=== PATIENT | female | born 1995 | race African-American/Black ===

== ENCOUNTER 2019-12-30 09:00 | Emergency (ER) | payer OTHER, SELFPAY ==
[2019-12-30 09:11] VITALS: BP 148/95; PULSE 96; RESP 18; TEMP 37.7; O2SAT 99
--- NOTE | 2019-12-30 10:00 | ED.GENADULT ---
HPI - General Adult General Chief complaint: Unspecified Stated complaint: vomiting Time Seen by Provider: 12/30/19 09:53 Source: patient Mode of arrival: ambulatory Limitations: no limitations History of Present Illness HPI narrative: Pt is a 24 y/o female who presents to the ED with c/o N/V for 2 days. Pt reports associated cough with phlegm production, JI, myalgia, fever of 100.8F, and sore throat x4 days. She also states that she had diarrhea 2 days ago. Pt states that when she went to work 2 of her coworkers were sick with the same Sx. Pt did not get a flu shot. She is not able to keep anything down. Pt had induced HTN and was on HTN medication but she has not been on HTN medication since. The last time she saw her OBGYN was 2 months ago and she is supposed to see a PCP about it. complaint: N/V Onset (ago): day(s) (2) Relieving factors: none Exacerbating factors: eating Associated symptoms: cough, fever/chills, headaches and other (myalgia, sore throat, diarrhea) Treatments prior to arrival: none Related Data Allergies Allergy/AdvReac Type Severity Reaction Status Date / Time No Known Allergies Allergy Verified 12/14/19 10:53 Review of Systems Review of Systems: All systems reviewed & are unremarkable except as noted in HPI and below Constitutional: Constitutional: Reports body ache(s) and Reports fever(s) (100.8F) ENT: Reports sore throat Respiratory: Respiratory: Reports cough Gastrointestinal: Gastrointestinal: Reports diarrhea, Reports nausea and Reports vomiting Neurologic: Reports headache(s) PMFSH Past Medical History Medical History Asthma Depression Elective Encounter for counseling regarding contraception induced hypertension Surgical History Surgical History (Updated 12/30/19 @ 10:09 by Justin Capone) No significant past surgical history Social History Social History Smoking status: Light tobacco smoker Second hand tobacco smoke exposure: No Alcohol intake: current Substance use type: marijuana Exam Const: General: cooperative, no acute distress, alert and ill appearing (mildly) Nutritional Appearance: well nourished Orientation/consciousness: patient oriented x3 Limitations: no limitations HENMT: Mouth: Yes lip normal and Yes moist mucous membranes Resp: Effort & Inspection: normal respiratory effort Auscultation: clear to auscultation bilaterally Cardio: Rate: regular rate Rhythm: regular rhythm Peripheral pulses: dorsalis pedis present bilateral GI: GI Palp: Yes Soft to palpation and No Tenderness to palpation present (GI) Auscultation: normal bowel sounds Skin: General skin exam: normal color Neuro: General: patient oriented x3 Cognition (Neuro): normal cognition Speech: normal speech Extrem: General: normal to inspection, full ROM and no clubbing, cyanosis or edema Psych: Mental Status: mental status grossly normal Affect: normal affect Attitude: cooperative Course Course Emergency Course: Patient positive for influenza B. Patient with findings of modest dehydration. Patient given 2 L of IV fluids and oral hydration in the emergency department. Discussed symptomatic management will prescribe Zofran for home use. Vital Signs Vital signs: Vital Signs Temperature 99.9 F H 12/30/19 09:11 Pulse Rate 96 12/30/19 09:11 Respiratory Rate 18 12/30/19 09:11 Blood Pressure 148/95 H 12/30/19 09:11 Pulse Oximetry 99 12/30/19 09:11 Temperature 99.9 F H 12/30/19 09:11 Pulse Rate 103 H 12/30/19 12:10 Respiratory Rate 18 12/30/19 09:11 Blood Pressure 127/91 H 12/30/19 12:10 Pulse Oximetry 99 12/30/19 09:11 Medical Decision Making Vital Signs Vital Signs: Vital Signs Temperature 99.9 F H 12/30/19 09:11 Pulse Rate 96 12/30/19 09:11 Respiratory Rate 18 12/30/19 09:11 Blood Pressure 148/95
[2019-12-30] MEDS: LACTATED RINGERS 1,000 ML 999 ML IV CONT ×2 (10:18→13:10)
[2019-12-30] MEDS: ONDANSETRON INJ 4 MG/2 ML VIAL IV PUSH (10:18)
[2019-12-30] MEDS: KETOROLAC 30 MG/ML VIAL (*BKC) IV PUSH (10:18)
[2019-12-30 10:31] LABS: Basophils Percent Auto 0.3 % (0.2-1.2); Hematocrit 40.5 % (37.0-47.0); Hemoglobin 12.9 g/dL (12.0-15.0); Immature Granulocyte Absolute 0.01 K/mm3 (0.00-0.031); Immature Granulocyte Percent A 0.3 % (0-0.5); Lymphocytes Absolute Auto 0.59 K/mm3 (0.9-3.2); Lymphocytes Percent Auto 18.3 % (18.3-44.2); Mean Corpuscular HGB Conc 31.9 g/dl (32-36); Mean Corpuscular Hemoglobin 25.4 pg (26-34); Mean Corpuscular Volume 79.9 fl (80-100); Mean Platelet Volume 12.2 fl (7.4-10.4); Monocytes Absolute Auto 0.3 K/mm3 (0.1-0.6); Monocytes Percent Auto 9.6 % (2.6-8.5); Neutrophils Absolute Auto 2.3 K/mm3 (1.3-6.7); Neutrophils Percent Auto 71.5 % (45.5-73.1); Platelet Count Result 251 k/mm3 (150-375); Red Blood Count 5.07 M/mm3 (4.2-5.4); Red Cell Distribution Width 13.3 % (11.5-14.5); White Blood Count 3.2 K/mm3 (4.5-10.0)
[2019-12-30 10:44] LABS: Alanine Aminotransferase 144 U/L (4-35); Albumin Level 4.5 g/dL (3.5-5.1); Alkaline Phosphatase 80 U/L (38-126); Aspartate Amino Transferase 210 U/L (14-36); Bilirubin,Total 0.4 mg/dL (0.2-1.3); Blood Urea Nitrogen 10 mg/dL (7-17); Calcium 9.1 mg/dL (8.4-10.2); Carbon Dioxide 24 mmol/L (22-30); Chloride 101 mmol/L (98-107); Estimated CRCL calculation 114 ml/min; Estimated Glomerular Filt Rate > 60; Glucose 99 mg/dL (65-105); Potassium 3.4 mmol/L (3.4-5.0); Sodium 139 mmol/L (137-145)
[2019-12-30 12:06] VITALS: BP 144/97; PULSE 72
[2019-12-30 12:08] VITALS: BP 123/97; PULSE 86
[2019-12-30 12:10] VITALS: BP 127/91; PULSE 103
[2019-12-30 12:23] LABS: Add Urine Microscopic? YES; Amorphous Sediment Urine Few; Appearance Urine Cloudy (Clear); Bacteria Urine Trace /hpf; Bilirubin Urine Negative (Negative); Blood Urine 2+ (Negative); Color Urine Yellow (Yellow); Glucose Urine UA Negative (Negative); Ketones Urine 1+ mg/dL (Negative); Leukocyte Esterase Ur Negative LEU/UL (Negative); Mucus Urine Heavy /lpf; Nitrate Urine Negative (Negative); Protein Urine 1+ mg/dL (Negative); Squamous Epithelial Cell Urine Many /hpf (Few); WBC Urine 0-3 /hpf
[2019-12-30 12:29] LABS: Specific Grav Ur 1.032 (1.001-1.035)
[2019-12-30 14:15] VITALS: BP 160/107; RESP 16
--- NOTE | 2020-01-04 08:23 | PC.NURSE ---
LATE ENTRY This note is being entered to document information to the patient's record. The following information was omitted on [12/30/19]. 2nd lr bolus infused at 1410
== END 2019-12-30 14:15 | disposition home or self-care (01) ==
PROVIDERS: Emergency Provider Emergency Medicine
DX: J10.1 Influenza due to other identified influenza virus with other respiratory manifestations (principal); E86.0 Dehydration; F17.200 Nicotine dependence, unspecified, uncomplicated; J45.909 Unspecified asthma, uncomplicated
CPT/HCPCS: 36415; 80053; 81001; 81025; 85025; 87804; 96361; 96374; 96375; 99284; J1885; J2405; J7120

== ENCOUNTER 2020-12-17 20:30 | Emergency (ER) | payer OTHER, SELFPAY ==
[2020-12-17 20:50] VITALS: BP 127/96; PULSE 93; RESP 16; TEMP 37.4; O2SAT 100
--- NOTE | 2020-12-17 20:53 | PC.NURSE ---
spoke with Guillermina RN at poison control. Guillermina advised a baseline EKG to look for a widened QRS and treat with bicarb if wider than 100. monitor for a minimum of 4 hours before medically clear. Guillermina said that mild tachycardia and elevated temperature are to be expected and that the maximum dose for pt would be 700mg. pt reported took 450mg diphenhydramine.
[2020-12-17 21:12] LABS: Basophils Percent Auto 0.4 % (0.2-1.2); Eosinophils Percent Auto 0.4 % (0-4.4); Hematocrit 39.9 % (37.0-47.0); Hemoglobin 12.9 g/dL (12.0-15.0); Immature Granulocyte Absolute 0.02 K/mm3 (0.00-0.031); Immature Granulocyte Percent A 0.2 % (0-0.5); Lymphocytes Absolute Auto 2.33 K/mm3 (0.9-3.2); Lymphocytes Percent Auto 27.6 % (18.3-44.2); Mean Corpuscular HGB Conc 32.3 g/dl (32-36); Mean Corpuscular Hemoglobin 26.3 pg (26-34); Mean Corpuscular Volume 81.3 fl (80-100); Mean Platelet Volume 11.2 fl (7.4-10.4); Monocytes Percent Auto 12.1 % (2.6-8.5); Neutrophils Percent Auto 59.3 % (45.5-73.1); Platelet Count Result 286 k/mm3 (150-375); Red Blood Count 4.91 M/mm3 (4.2-5.4); Red Cell Distribution Width 13.2 % (11.5-14.5); White Blood Count 8.5 K/mm3 (4.5-10.0)
--- NOTE | 2020-12-17 21:23 | ECG_ITS ---
Measurements Intervals [place] Rate: 93 P: 76 OK: 140 QRS: 87 QRSD: 94 T: 51 QT: 361 QTc: 450 Interpretive Statements SINUS RHYTHM INCOMPLETE RIGHT BUNDLE BRANCH BLOCK BORDERLINE ECG Electronically Signed On 12-18-2020 7:12:40 PRINTED CIRCUIT DESIGNER by Twin Bro D.O.
[2020-12-17 21:27] LABS: Acetaminophen < 10 ug/mL (10-30); Ethanol < 10 mg/dL (<10); Salicylate < 1.0 mg/dL (2-20)
[2020-12-17 21:28] LABS: Alanine Aminotransferase 14 U/L (4-35); Albumin Level 4.1 g/dL (3.5-5.1); Alkaline Phosphatase 57 U/L (38-126); Anion Gap 7 mmol/L (8-16); Aspartate Amino Transferase 20 U/L (14-36); Bilirubin,Total 0.4 mg/dL (0.2-1.3); Blood Urea Nitrogen 9 mg/dL (7-17); Carbon Dioxide 27 mmol/L (22-30); Chloride 107 mmol/L (98-107); Estimated Glomerular Filt Rate > 60; Glucose 66 mg/dL (65-105); Potassium 3.2 mmol/L (3.4-5.0); Sodium 141 mmol/L (137-145)
--- NOTE | 2020-12-17 23:38 | PC.NURSE ---
spoke with Guillermina BLOOM at poison control. updated Guillermina on patient condition and plan of care. Guillermina approved and stated someone from poison control would be calling back later to check on patient again.
--- NOTE | 2020-12-18 01:05 | ECG_ITS ---
Measurements Intervals [place] Rate: 78 P: 73 CT: 153 QRS: 81 QRSD: 91 T: 38 QT: 395 QTc: 451 Interpretive Statements SINUS RHYTHM INCOMPLETE RIGHT BUNDLE BRANCH BLOCK BORDERLINE ECG Electronically Signed On 12-18-2020 7:14:19 RETORT PRE COOKER by Twin Bro D.O.
[2020-12-18 01:16] LABS: Barbiturate Screen Urine Negative (Negative); Benzodiazepines Screen Urine Negative (Negative)
[2020-12-18 01:26] LABS: Amphetamine Screen Urine Negative (Negative); Cannabinoid Screen Urine Positive (Negative); Cocaine Screen Urine Negative (Negative); Methadone Screen Urine Negative (Negative); Opiate Screen Urine Negative (Negative); Phencyclidine Screen Urine Negative (Negative)
[2020-12-18 01:57] LABS: Add Urine Microscopic? YES; Appearance Urine Cloudy (Clear); Bacteria Urine Trace /hpf; Bilirubin Urine Negative (Negative); Blood Urine Negative (Negative); Color Urine Yellow (Yellow); Glucose Urine UA Negative (Negative); Ketones Urine Negative (Negative); Leukocyte Esterase Ur Negative LEU/UL (Negative); Mucus Urine Rare /lpf; Nitrate Urine Negative (Negative); Protein Urine Negative (Negative); Specific Grav Ur 1.024 (1.001-1.035); Squamous Epithelial Cell Urine Rare /hpf (Few)
[2020-12-18 02:59] VITALS: BP 133/85; PULSE 73; RESP 16; O2SAT 100
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
[2020-12-18 09:05] VITALS: BP 151/104; PULSE 98; RESP 18; TEMP 37.3; O2SAT 99
--- NOTE | 2020-12-18 09:10 | PC.NURSE ---
Pt states she doesn't want any breakfast at this time
[2020-12-18 11:46] VITALS: BP 142/96; PULSE 99; RESP 18; O2SAT 100
--- NOTE | 2020-12-18 11:59 | PC.NURSE ---
called connor to transfer patient to [facility]. eta 1200
[2020-12-18 18:26] LABS: SARS-CoV-2 RNA PCR Negative
== END 2020-12-18 12:18 ==
PROVIDERS: Emergency Medicine; Emergency Provider Emergency Medicine
DX: T45.0X2A Poisoning by antiallergic and antiemetic drugs, intentional self-harm, initial encounter (principal); F32.9 Major depressive disorder, single episode, unspecified; Z20.822 Contact with and (suspected) exposure to COVID-19; J45.909 Unspecified asthma, uncomplicated; I45.10 Unspecified right bundle-branch block
CPT/HCPCS: 36415; 80053; 80307; 81001; 81025; 84443; 85025; 93005; 99285; C9803; U0003; U0005

== ENCOUNTER 2023-05-01 13:16 | Outpatient (CLI) | payer OTHER, SELFPAY ==
--- NOTE | ~2023-05-01 | US_ITS ---
EXAMINATION: US OB <= 14 weeks fetus DATE: 05/01/2023 14:29 INDICATION: First trimester viability and dating and assessment TECHNIQUE: Real-time pelvic transabdominal and transvaginal ultrasound was performed. COMPARISON: None. FINDINGS: The uterus measures 11.0 x 7.7 x 6.8 cm. There are two intrauterine gestational sacs separa jozef by a thick membrane. Each contains a yolk sac. Baby A: heart motion is identified measuring 173 beats per minute (bpm) by M-mode Doppler. The crown rump length measures 18 mm, which correlates with an estimated gestational age of 8 weeks and 2 day(s) (+/-) 5 day(s). Baby B: heart motion is identified measuring 180 beats per minute (bpm) by M-mode Doppler. The crown rump length measures 16 mm, which correlates with an estimated gestational age of 8 weeks and 0 day(s) (+/-) 5 day(s). The right ovary measures 3.3 x 2.9 x 2.5 cm. The left ovary measures 4.0 x 2.0 x 2.3 cm. There is nor mal vascular flow in the ovaries. There is no free fluid in the pelvis. IMPRESSION: 1. Dichorionic, diamniotic twin with an estimated gestational age of 8 weeks and 2 day(s) ( +/-) 5 day(s) for baby A an estimated gestational age of 8 weeks and 0 day(s) (+/-) 5 day(s) for baby B. Estimated date of delivery is 12/09/2023 to 12/11/2023. Reviewed, dictated and finalized at location F. IMPRESSION: 1. Dichorionic, diamniotic twin with an estimated gestational age of 8 weeks and 2 day(s) (+/-) 5 day(s) for baby A an estimated gestational age of 8 weeks and 0 day(s) (+/-) 5 day(s) for baby B. Estimated date of delivery is to 12/11/2023.
== END 2023-05-01 13:17 | disposition home or self-care (01) ==
PROVIDERS: Visit Provider Registered Nurse
DX: Z36.9 Encounter for antenatal screening, unspecified (principal); Z3A.00 Weeks of gestation of pregnancy not specified
CPT/HCPCS: 76801

== ENCOUNTER 2023-05-02 23:29 | Emergency (ER) | payer OTHER, SELFPAY ==
[2023-05-03 00:02] VITALS: BP 144/98; PULSE 90; RESP 20; TEMP 36.4; O2SAT 100
--- NOTE | 2023-05-03 01:57 | PC.NURSE ---
0155 Pt came up to triage and informed the intake nurse not to worry about bringing me back, I'm leaving. and walked out. Pt significant other had come up a few times prior to pt leaving however, was unable to pull pt back or give a wait time to pt.
== END 2023-05-03 02:16 | disposition left against medical advice (07) ==
DX: O21.9 Vomiting of pregnancy, unspecified (principal)
CPT/HCPCS: 99199

== ENCOUNTER 2023-05-13 15:42 | Emergency (ER) | payer OTHER, SELFPAY ==
[2023-05-13 16:05] VITALS: BP 122/86; PULSE 86; RESP 16; TEMP 36.6; O2SAT 100
--- NOTE | 2023-05-13 17:57 | ED.HA ---
HPI - Headache General Chief Complaint: Headache Stated Complaint: headache, 10 wks Time Seen by Provider: 05/13/23 17:48 History of Present Illness HPI Narrative: Pt presents with a JI starting yesterday and not resolving. Pt has some nausea but is not vomiting. Pt had JI's with last but does not normally have JI's. Pt denies fever or neurologic findings. Pt is 10 weeks . Related Data Home Medications Medication Instructions Recorded Confirmed prenat.vits,sera,[id number] 1 tablet PO DAILY 04/25/23 Allergies Allergy/AdvReac Type Severity Reaction Status Date / Time No Known Allergies Allergy Verified 05/13/23 18:13 Review of Systems Review of Systems: All systems reviewed & are unremarkable except as noted in HPI and below PMFSH Past Medical History Medical History (Updated 05/13/23 @ 18:49 by Bryon Vazquez III, DO) Asthma Depression Elective Encounter for counseling regarding contraception induced hypertension Surgical History Surgical History No significant past surgical history Family History Family History Grandparent Diabetes mellitus Acute myocardial infarction Father Hypertension Mother Family history of malignant neoplasm of breast in first degree relative, Onset Age: 47 Social History Social History (Updated 04/25/23 @ 14:06 by Sosa Kilgore MA) Smoking status: Former smoker Tobacco type: cigarettes and e-cigarettes/vaping Second hand tobacco smoke exposure: No Alcohol intake: former Alcohol use details: DC'd when found out she was Substance use: former Substance use type: marijuana Lack of Transportation: No Lack of Food: Never True Current Housing: I Have Housing Concerned About Future Housing: No Difficulty Paying Gas/Electric Bills: No Difficulty Paying for Meds: No Currently Unemployed: No Education: High School Diploma/GED Living arrangements: with family Occupation/Education: occupation Gender identity (if verbalized by the patient): Female Sexual Orientation (if Verbalized by the Patient): Straight or Heterosexual Spiritual care concerns: No Exam Const: General: healthy appearing Nutritional Appearance: well nourished Orientation/consciousness: patient oriented x3 Limitations: no limitations HENMT: Head: normal to inspection Mouth: Yes Normal oral and palatal mucosa present Eyes: Conjunctivae: conjunctivae normal Pupils: Equal, round and reactive pupils present EOM: EOMs intact bilaterally Direct Ophthalmoscopy: photophobia Neck: Neck: normal visual inspection, no lymphadenopathy and no meningeal signs Resp: Effort & Inspection: normal respiratory effort Auscultation: clear to auscultation bilaterally Cardio: Rate: regular rate Rhythm: regular rhythm GI: GI Palp: Yes Soft to palpation Auscultation: normal bowel sounds Skin: General skin exam: normal color Rashes: no rashes Neuro: General: patient oriented x3, moves all extremities, no meningeal signs and CN's II-XI intact bilaterally Cranial nerves: Yes Nystagmus not present Speech: normal speech Extrem: General: normal to inspection and no clubbing, cyanosis or edema Psych: Mental Status: mental status grossly normal Affect: normal affect Attitude: cooperative Course Vital Signs Vital signs: Vital Signs Temperature 98 F 05/13/23 16:05 Pulse Rate 86 05/13/23 16:05 Respiratory Rate 16 05/13/23 16:05 Blood Pressure 122/86 05/13/23 16:05 Pulse Oximetry 100 05/13/23 16:05 Oxygen Delivery Room Air 05/13/23 16:05 Temperature 98 F 05/13/23 16:05 Pulse Rate 86 05/13/23 16:05 Respiratory Rate 16 05/13/23 16:05 Blood Pressure 122/86 05/13/23 16:05 Pulse Oximetry 100 05/13/23 16:05 Oxygen Delivery Room Air 05/13/23 16:05 MDM
--- NOTE | 2023-05-13 18:12 | PC.NURSE ---
Addendum entered by Estela Braswell RN 05/13/23 18:24: specifically torMD tyler downey states okay to give during first trimester. Original Note: clarified medications with MD Tyler MD states okay to give all medications due to patient being in first trimester.
[2023-05-13] MEDS: SODIUM CHLORIDE 0.9% IV 1,000 ML 999 ML IV CONT (18:18)
[2023-05-13] MEDS: METOCLOPRAMIDE HCL INJ 10 MG/2 ML VIAL IV PUSH (18:18)
[2023-05-13] MEDS: diphenhydrAMINE HCl INJ 50 MG/ML VIAL 25 MG IV PUSH (18:18)
[2023-05-13] MEDS: KETOROLAC 15 MG/ML VIAL (*BKC) IV PUSH (18:19)
[2023-05-13] MEDS: methylPREDNISolone SOD SUCC 125 MG VIAL IV PUSH (18:19)
[2023-05-13 18:27] LABS: Basophils Percent Auto 0.4 % (0.2-1.2); Eosinophils Percent Auto 0.2 % (0-4.4); Hematocrit 36.9 % (37.0-47.0); Immature Granulocyte Absolute 0.05 K/mm3 (0.00-0.031); Immature Granulocyte Percent A 0.4 % (0-0.5); Lymphocytes Absolute Auto 2.44 K/mm3 (0.9-3.2); Lymphocytes Percent Auto 21.5 % (18.3-44.2); Mean Corpuscular HGB Conc 32.5 g/dl (32-36); Mean Corpuscular Hemoglobin 26.8 pg (26-34); Mean Corpuscular Volume 82.6 fl (80-100); Mean Platelet Volume 10.9 fl (7.4-10.4); Monocytes Percent Auto 8.5 % (2.6-8.5); Neutrophils Absolute Auto 7.8 K/mm3 (1.3-6.7); Platelet Count Result 380 k/mm3 (150-375); Red Blood Count 4.47 M/mm3 (4.2-5.4); Red Cell Distribution Width 13.6 % (11.5-14.5); White Blood Count 11.4 K/mm3 (4.5-10.0)
[2023-05-13 18:34] LABS: Appearance Urine Turbid (Clear); Bacteria Urine Rare /hpf; Bilirubin Urine Negative (Negative); Blood Urine Negative (Negative); Color Urine Yellow (Yellow); Glucose Urine UA Negative (Negative); Ketones Urine Negative (Negative); Leukocyte Esterase Ur 1+ LEU/UL (Negative); Nitrate Urine Negative (Negative); Non Pathogenic Casts 0-2; Protein Urine Negative (Negative); RBC Urine 0-2 /hpf (0-2); Specific Grav Ur 1.019 (1.001-1.035); Squamous Epithelial Cell Urine Moderate /hpf (Few)
[2023-05-13 18:36] LABS: Add Urine Microscopic? YES
[2023-05-13 18:41] LABS: Alanine Aminotransferase 18 U/L (6-35); Albumin Level 4.5 g/dL (3.5-5.1); Alkaline Phosphatase 61 U/L (38-126); Anion Gap 8 mmol/L (8-16); Aspartate Amino Transferase 23 U/L (14-36); Bilirubin,Total 0.3 mg/dL (0.2-1.3); Blood Urea Nitrogen 7 mg/dL (7-17); Calcium 9.2 mg/dL (8.4-10.2); Carbon Dioxide 26 mmol/L (22-30); Chloride 101 mmol/L (98-107); Estimated CRCL calculation 155 ml/min; Estimated Glomerular Filt Rate > 60; Glucose 85 mg/dL (65-110); Potassium 3.5 mmol/L (3.4-5.0); Sodium 135 mmol/L (137-145)
== END 2023-05-13 18:58 | disposition home or self-care (01) ==
PROVIDERS: Emergency Provider Emergency Medicine; PCP Obstetrics & Gynecology
DX: O23.41 Unspecified infection of urinary tract in pregnancy, first trimester (principal); N39.0 Urinary tract infection, site not specified; O26.891 Other specified pregnancy related conditions, first trimester; R51.9 Headache, unspecified; O99.511 Diseases of the respiratory system complicating pregnancy, first trimester; J45.909 Unspecified asthma, uncomplicated; Z87.891 Personal history of nicotine dependence; Z3A.10 10 weeks gestation of pregnancy
CPT/HCPCS: 36415; 80053; 81001; 85025; 87086; 96361; 96374; 96375; 99284; J1200; J1885; J2765; J2930; J7030

== ENCOUNTER 2023-05-20 16:16 | Outpatient (CLI) | payer OTHER, SELFPAY ==
[2023-05-20 16:49] LABS: Hematocrit 37.8 % (37.0-47.0); Hemoglobin 12.2 g/dL (12.0-15.0); Mean Corpuscular HGB Conc 32.3 g/dl (32-36); Mean Corpuscular Hemoglobin 26.4 pg (26-34); Mean Corpuscular Volume 81.8 fl (80-100); Mean Platelet Volume 11.1 fl (7.4-10.4); Platelet Count Result 376 k/mm3 (150-375); Red Blood Count 4.62 M/mm3 (4.2-5.4); Red Cell Distribution Width 13.5 % (11.5-14.5); White Blood Count 10.4 K/mm3 (4.5-10.0)
[2023-05-20 17:04] LABS: Appearance Urine Cloudy (Clear); Bacteria Urine 2+ /hpf; Bilirubin Urine Negative (Negative); Blood Urine Negative (Negative); Color Urine Yellow (Yellow); Glucose Urine UA Negative (Negative); Ketones Urine Negative (Negative); Leukocyte Esterase Ur 1+ LEU/UL (NEGATIVE); Nitrate Urine Negative (Negative); Non Pathogenic Casts 0-2; Protein Urine Negative (Negative); RBC Urine 0-2 /hpf (0-2); Specific Grav Ur 1.025 (1.001-1.035); Squamous Epithelial Cell Urine Moderate /hpf (Few); pH Urine 6.5 (5.0-9.0)
[2023-05-20 17:08] LABS: Add Urine Microscopic? YES
[2023-05-20 17:37] LABS: HIV 1/2 Ab P24 Ag Result Negative (Negative)
[2023-05-20 17:39] LABS: Vitamin D 25 Hydroxy 27.6 ng/mL
[2023-05-20 17:56] LABS: Hepatitis B Surface Antigen Negative (Negative); Rubella IgG Antibody 46.5 IU/ML
[2023-05-20 18:07] LABS: Hepatitis C Virus Antibody Negative (Negative)
[2023-05-21 09:02] LABS: Rapid Plasma Reagin Non-Reactive (NonReactive)
[2023-05-24 07:59] LABS: Hematocrit 39.4 % (35.0-45.0); Hemoglobin 12.3 g/dL (11.7-15.5); MCH 25.9 pg (27.0-33.0); MCV 83.1 fL (80.0-100.0); RDW 13.1 % (11.0-15.0); Red Blood Cell Count 4.74 Mill/uL (3.80-5.10)
[2023-05-30 12:11] LABS: CF Result NEGATIVE (NEGATIVE); Ethnicity NG
== END 2023-05-20 16:17 | disposition home or self-care (01) ==
LOC: ANHLAB 16:17
PROVIDERS: PCP Obstetrics & Gynecology; Visit Provider Obstetrics & Gynecology
DX: Z34.90 Encounter for supervision of normal pregnancy, unspecified, unspecified trimester (principal); Z3A.00 Weeks of gestation of pregnancy not specified
CPT/HCPCS: 36415; 81001; 81220; 81243; 82306; 83021; 84443; 85027; 86592; 86703; 86762; 86787; 86803; 86850; 86900; 86901; 87086; 87340; G0432

== ENCOUNTER 2023-08-28 15:45 | Outpatient (CLI) | payer OTHER, SELFPAY ==
--- NOTE | 2023-08-28 16:06 | ECG_ITS ---
Measurements Intervals [place] Rate: 73 P: 18 ID: 143 QRS: 66 QRSD: 92 T: 30 QT: 370 QTc: 409 Interpretive Statements SINUS RHYTHM INCOMPLETE RIGHT BUNDLE BRANCH BLOCK COMPARED TO ECG 12/18/2020 01:11:18 NO SIGNIFICANT CHANGES Electronically Signed On 08-29-2023 14:16:30 CDT by Fabby Maxwell M.D.
== END 2023-08-28 15:46 | disposition home or self-care (01) ==
PROVIDERS: Visit Provider Obstetrics & Gynecology
DX: O30.002 Twin pregnancy, unspecified number of placenta and unspecified number of amniotic sacs, second trimester (principal); Z3A.00 Weeks of gestation of pregnancy not specified; R07.89 Other chest pain; I45.10 Unspecified right bundle-branch block
CPT/HCPCS: 93005

== ENCOUNTER 2023-09-01 10:05 | Outpatient (CLI) | payer OTHER, SELFPAY ==
--- NOTE | 2023-09-04 11:32 | WPDHOLTEREM ---
Holter/Event Monitor Holter/Event Monitor Date of procedure: 09/01/23 Holter/Event Procedure: 24 Hr Holter Monitor Indications: Palpitations Conclusion: 1. 24 hour holter monitor on 09/01/23. 2. Underlying rhythm is sinus rhythm. HR range 63-132 bpm; average HR 90 bpm. 3. There are 4 premature supraventricular complexes. No supraventricular tachycardia. 4. No premature ventricular complexes. No ventricular tachycardia. 5. No sinoatrial or atrioventricular blocks. No significant pauses greater than 2 seconds. 6. Patient reports symptoms of shortness of breath, palpitations which demonstrate sinus rhythm, HR range 90-111 bpm.
== END 2023-09-01 10:06 | disposition home or self-care (01) ==
LOC: ANHCARD 10:06
PROVIDERS: Visit Provider Obstetrics & Gynecology
DX: O30.002 Twin pregnancy, unspecified number of placenta and unspecified number of amniotic sacs, second trimester (principal); R07.89 Other chest pain; Z3A.00 Weeks of gestation of pregnancy not specified
CPT/HCPCS: 93225; 93226

== ENCOUNTER 2023-10-22 09:30 | Outpatient (RCR) | payer OTHER, SELFPAY ==
--- NOTE | 2023-10-09 16:45 | OPREHPOC ---
Outpatient Therapy Plan of Care This is a Multidisciplinary Plan of Care that may contain components documented by all disciplines (PT, OT, and ST.) PT Problem 1 PT Problem #1 Knowledge Deficit PT Goal 1 Goal Pt to be IND with issued HEP Target Visit 4 PT Problem 2 PT Problem #2 Pain PT Goal 1 Goal Pt to improve hip pain to no greater than 3/10 in the last week. Target Visit 4 PT Goal 2 Goal Pt to report 75% improvement in overall symptoms Target Visit 4 PT Problem 3 PT Problem #3 Pain PT Goal 1 Goal Pt to report being able to sleep without waking up d/t pain. Target Visit 4 PT Goal 2 Goal Pt to be able to stand/walk for 20 mins without an increase in pain. Target Visit 4 PT Problem 4 PT Problem #4 Impaired Range of Motion PT Goal 1 Goal Pt to demonstrate neutral pelvic alignment at re- eval. Target Visit 4
--- NOTE | 2023-10-09 16:45 | PTOPEVAL1 ---
Assessment and note entered by Rob Velez, PT, DPT Evaluation Information Assessment Status Evaluation Diagnosis dorsalgia, L hip pain (M54.9, M25.559) Onset 4-6 weeks Subjective Information Pt states she is 31wks with twins. She has been having low back and L hip pain for about the last month. She states the pain makes it hard to stand, walk, and sleep. She states a warm bath will help. She reports she also has a hx of 2 herniated disc in her back. She is a delivery director. Reported Pain Level Pain Score 6: Self Report Assessment PT Clinical Summary Jamie presents to therapy today for her initial evaluation with a diagnosis of back and hip pain, today she demonstrates symptoms consistent with L piriformis syndrome. She demonstrates pelvic asymmetry in supine today but this alignment improved with muscle energy techniques. Skilled therapy services are indicated to manage pain, improve pelvic alignment, and to improve functional mobility. Plan of Care Interventions Gait Training,Hot Pack/Cold Pack,Manual Therapy, Neuro Re-education,Patient/Caregiver Educati, Therapeutic Activities,Therapeutic Exercise PT Services Indicated Yes Treatment Frequency and 1x/wk for 4 visits Duration These treatments will address the objective and functional deficits as defined above. The patient will be advanced safely and appropriately in order for the patient to progress towards his/her prior level of function. Additional exercises will be introduced and as well as a comprehensive home exercise program upon discharge, if needed, ?to ensure carryover of functional gains achieved in the clinic. This treatment plan has been reviewed and agreement upon by the patient.
--- NOTE | 2023-10-29 09:40 | PCPTNOTE ---
Patient called to cancel per patient request.
--- NOTE | 2023-11-06 09:36 | PCPTNOTE ---
Patient did not show up for scheduled appointment this date. Called and LVM with pt with instructions to follow up if needed.
--- NOTE | 2023-11-18 14:21 | PTOPDC ---
Assessment and note entered by Rob Velez, PT, DPT Evaluation Information Assessment Status Discharge - Pt Not Present Diagnosis dorsalgia, L hip pain (M54.9, M25.559) Onset 4-6 weeks Subjective Information Pt did not show for scheduled appointment on 11/06 called and LVM with follow up instruction to reschedule if needed. Have not heard from pt since . Assessment PT Clinical Summary Pt was evaluated on 10/09/23 and completed 1 follow up appointment. She will be discharged at this time per the attendance policy. If she needs additional therapy at a later time she will need a new order.
== END 2023-11-18 14:35 | disposition home or self-care (01) ==
LOC: ANHGOSHPT 09:30
PROVIDERS: PCP Obstetrics & Gynecology; Visit Provider Obstetrics & Gynecology
DX: O30.009 Twin pregnancy, unspecified number of placenta and unspecified number of amniotic sacs, unspecified trimester (principal); M25.559 Pain in unspecified hip; M54.9 Dorsalgia, unspecified; Z3A.00 Weeks of gestation of pregnancy not specified
CPT/HCPCS: 97110; 97140; 97161; 99199

== ENCOUNTER 2023-10-31 15:31 | Outpatient (CLI) | payer OTHER, SELFPAY ==
[2023-10-31] VITALS (27 sets, daily range): BP systolic 141–165; BP diastolic 91–108; PULSE 67–110; O2SAT 98–100
[2023-10-31] MEDS: BETAMETHASONE SOD PHOS/ACETATE 30 MG/5 ML VIAL 12 MG IM (16:49)
[2023-10-31 17:02] LABS: Basophils Absolute Auto 0.1 K/mm3 (0.0-0.1); Basophils Percent Auto 0.4 % (0.2-1.2); Eosinophils Percent Auto 0.2 % (0-4.4); Hematocrit 35.1 % (37.0-47.0); Hemoglobin 10.7 g/dL (12.0-15.0); Immature Granulocyte Absolute 0.18 K/mm3 (0.00-0.031); Immature Granulocyte Percent A 1.5 % (0-0.5); Immature Platelet Fraction Pct 17.4 % (0.9-11.2); Lymphocytes Absolute Auto 2.13 K/mm3 (0.9-3.2); Lymphocytes Percent Auto 17.5 % (18.3-44.2); Mean Corpuscular HGB Conc 30.5 g/dl (32-36); Mean Corpuscular Hemoglobin 24.9 pg (26-34); Mean Corpuscular Volume 81.6 fl (80-100); Mean Platelet Volume 13.4 fl (7.4-10.4); Monocytes Percent Auto 8.2 % (2.6-8.5); Neutrophils Absolute Auto 8.8 K/mm3 (1.3-6.7); Neutrophils Percent Auto 72.2 % (45.5-73.1); Platelet Count Result 207 k/mm3 (150-375); Red Cell Distribution Width 14.1 % (11.5-14.5); White Blood Count 12.2 K/mm3 (4.5-10.0)
[2023-10-31 17:07] LABS: Creatinine Urine 150.4 mg/dL; Total Protein Urine Random 21 mg/dL; Ur Ttl Prot Creatinine Ratio 0.14 mg/mg (0-0.20)
[2023-10-31 17:11] LABS: Appearance Urine Clear (Clear); Bacteria Urine Rare /hpf; Bilirubin Urine Negative (Negative); Blood Urine Negative (Negative); Color Urine Yellow (Yellow); Glucose Urine UA Negative (Negative); Ketones Urine 3+ mg/dL (Negative); Leukocyte Esterase Ur Trace LEU/UL (NEGATIVE); Nitrate Urine Negative (Negative); Non Pathogenic Casts 0-2; Protein Urine Trace mg/dL (Negative); RBC Urine 0-2 /hpf (0-2); Specific Grav Ur 1.018 (1.001-1.035); Squamous Epithelial Cell Urine Few /hpf (Few); WBC Urine 0-5 /hpf (0-3)
[2023-10-31 17:14] LABS: Add Urine Microscopic? YES
[2023-10-31 17:21] LABS: Alanine Aminotransferase 10 U/L (6-35); Albumin Level 3.9 g/dL (3.5-5.1); Alkaline Phosphatase 273 U/L (38-126); Anion Gap 8 mmol/L (8-16); Aspartate Amino Transferase 21 U/L (14-36); Bilirubin,Total 0.6 mg/dL (0.2-1.3); Blood Urea Nitrogen 4 mg/dL (7-17); Carbon Dioxide 18 mmol/L (22-30); Chloride 109 mmol/L (98-107); Estimated Glomerular Filt Rate > 60; Glucose 75 mg/dL (65-110); Potassium 3.6 mmol/L (3.4-5.0); Sodium 135 mmol/L (137-145); Uric Acid 2.8 mg/dL (2.5-7.5)
[2023-10-31] MEDS: LABETALOL HCL 100 MG TABLET 200 MG PO (17:36)
--- NOTE | 2023-10-31 18:09 | PM.OBTRLD ---
OB - Triage/Final Diagnosis Visit Information Date of evaluation: 10/31/23 Reason for evaluation: other (elevated blood pressure) Comments/Additional reasons for admission: I have assessed the risk for this patient, Jamie Garcia, and determined that she would benefit from observation care. Evaluation Laboratory results: Laboratory Tests 10/31/23 16:32 WBC 12.2 H RBC 4.30 Hgb 10.7 L Hct 35.1 L MCV 81.6 MCH 24.9 L MCHC 30.5 L RDW 14.1 Plt Count 207 MPV 13.4 H Immature Gran % (Auto) 1.5 H Neut % (Auto) 72.2 Lymph % (Auto) 17.5 L [place] % (Auto) 8.2 Eos % (Auto) 0.2 Baso % (Auto) 0.4 Lymph # (Auto) 2.13 [place] # (Auto) 1.0 H Eos # (Auto) 0.0 Baso # (Auto) 0.1 Abs Immat Gran (auto) 0.18 H Absolute Neuts (auto) 8.8 H Absolute Nucleated RBC 0.0 Nucleated RBC % 0.0 % Immature Plt Fraction 17.4 H Sodium 135 L Potassium 3.6 Chloride 109 H Carbon Dioxide 18 L Anion Gap 8 BUN 4 L Creatinine 0.50 L Estim Creat Clear Calc Not Reportable Estimated GFR > 60 Glucose 75 Uric Acid 2.8 Calcium 9.0 Total Bilirubin 0.6 AST 21 ALT 10 Alkaline Phosphatase 273 H Total Protein 7.0 Albumin 3.9 Urine Color Yellow Urine Appearance Clear Urine pH 7.0 Ur Specific [place] 1.018 Urine Protein Trace Urine Glucose (UA) Negative Urine Ketones 3+ H Ur Blood (Man) Negative Urine Nitrate Negative Urine Bilirubin Negative Urine Urobilinogen 1.0 Ur Leukocyte Esterase Trace H Urine RBC 0-2 Urine WBC 0-5 Ur Squamous Epith Cells Few Urine Bacteria Rare Urine Casts 0-2 U Random Total Protein 21 Urine Creatinine 150.4 Protein/Creat Ratio 2 0.14 Vital signs: Vital Signs - 24 hr 10/31/23 16:03 10/31/23 16:16 10/31/23 16:31 Pulse Rate 77 74 70 Blood Pressure 142/102 H 147/98 H 153/97 H Blood Pressure [Right Arm] Pulse Oximetry 10/31/23 17:01 10/31/23 17:16 10/31/23 17:31 Pulse Rate 67 71 71 Blood Pressure 165/94 H 156/108 H 152/101 H Blood Pressure [Right Arm] Pulse Oximetry 10/31/23 17:37 10/31/23 17:42 10/31/23 17:46 Pulse Rate 72 Blood Pressure 163/96 H Blood Pressure [Right Arm] Pulse Oximetry 99 100 10/31/23 17:47 10/31/23 17:52 10/31/23 17:57 Pulse Rate Blood Pressure Blood Pressure [Right Arm] Pulse Oximetry 100 100 100 10/31/23 18:01 10/31/23 18:02 10/31/23 18:07 Pulse Rate 74 Blood Pressure 156/91 H Blood Pressure [Right Arm] Pulse Oximetry 100 100 10/31/23 17:03 10/31/23 17:36 Pulse Rate 110 H 99 Blood Pressure Blood Pressure [Right Arm] 147/98 H Pulse Oximetry
--- NOTE | 2023-10-31 18:29 | PC.NURSE ---
1531: Patient sent over from Dr. Tinoco's office for elevated BP's. Orders to give Celestone, do NST, serial BPs and send patient home with a 24 hour urine. 1720: call center receptionist OB (Dr. Dietz) on unit at this time. RN informed OB that patient was sent over from Dr. Tinoco's office for elevated BP. RN informed OB of reactive NST for both babies. OB on unit reviewing lab results and BP's. Orders to give 200 mg of Labetalol now and monitor BP's for an hour after.OB stated he will put an prescription in for 200 mg of labetalol daily at home. 1800: OB on unit reviewing BPs orders to monitor patient's BP for a little longer. Report given to WOLF Sanders.
== END 2023-10-31 18:46 | disposition home or self-care (01) ==
LOC: ANHOBOP 15:38 → ANHOBPP 15:41
PROVIDERS: Visit Provider Obstetrics & Gynecology
DX: O13.9 Gestational [pregnancy-induced] hypertension without significant proteinuria, unspecified trimester (principal); Z3A.00 Weeks of gestation of pregnancy not specified
CPT/HCPCS: 36415; 59025; 80053; 81001; 82570; 84156; 84550; 85025; 85055; 87086; 96372; 99199; A9270; J0702

== ENCOUNTER 2023-11-01 17:00 | Outpatient (NON) | payer OTHER, SELFPAY ==
[2023-11-01] MEDS: BETAMETHASONE SOD PHOS/ACETATE 30 MG/5 ML VIAL 12 MG IM (17:30)
[2023-11-01 17:41] VITALS: BMI 26.4
[2023-11-01 17:50] LABS: Collection Time Urine 24 HOURS
[2023-11-01 17:53] LABS: Total Volume 24 Hour Urine 900 ml
[2023-11-01 17:57] LABS: Creatinine Urine 114.4 mg/dL; Patient Weight 168 Lbs
[2023-11-01 18:25] LABS: Creatinine Clearance Urine 132.2 ml/min (75-125); Serum Creat 0.5
[2023-11-02 11:56] LABS: Total Protein Urine Random 14 mg/dL
[2023-11-02 11:57] LABS: Total Protein Urine 24 Hr 126 mg/24hr (28-141)
== END 2023-11-01 17:32 | disposition home or self-care (01) ==
PROVIDERS: PCP Obstetrics & Gynecology; Visit Provider Student in an Organized Health Care Education/Training Program
DX: O26.90 Pregnancy related conditions, unspecified, unspecified trimester (principal); Z3A.00 Weeks of gestation of pregnancy not specified
CPT/HCPCS: 81050; 82575; 84156; J0702

== ENCOUNTER 2023-11-11 15:45 | Outpatient (RCR) | payer OTHER, SELFPAY ==
[2023-11-02 15:23] VITALS: BP 117/81; PULSE 90
[2023-11-04 12:30] VITALS: BP 129/86; PULSE 91
--- NOTE | ~2023-11-11 | US_ITS ---
EXAMINATION: US OB limited DATE: 11/04/2023 11:35 INDICATION: Amniotic fluid index assessment during third trimester twin TECHNIQUE: Real-time ultrasound of the pelvis was performed. The interpreting radiologist was not pre sent for the study. COMPARISON: 11/02/2023 FINDINGS: Baby A: Baby A is in vertex presentation. The placenta is anterior. cardiac activity and movement are noted. heart rate is 148 beats per minute (bpm). The amniotic fluid index is subje ctively normal. The deepest vertical pocket measures 7.9 cm. Baby B: Baby A is in variable presentation. The placenta is anterior. cardiac activity and feta l movement are noted. heart rate is 142 beats per minute (bpm). The amniotic fluid index is sub jectively normal. The deepest vertical pocket measures 5.1 cm. IMPRESSION: 1. Viable third trimester twin as described above. Reviewed, dictated and finalized at location L. VERY COLLECTOR
--- NOTE | ~2023-11-11 | US_ITS ---
EXAMINATION: US OB limited w BPP DATE: 11/02/2023 15:39 INDICATION: PIH, Twins . TECHNIQUE: Real-time ultrasound of the pelvis was performed. COMPARISON: 05/01/2023. FINDINGS: Twin . The cervix is closed measuring 5.9 cm, well distant from the placenta. Baby A Fetus in vertex presentation, longitudinal lie. The placenta is anterior. heart rate is 138 bp m. Deepest vertical amniotic fluid pocket 7.1 cm. Biophysical profile performed by the technologist: breathing (30 sec sustained breathing in 30 minutes): 0 out of 2. movement (3 gross body movements in 30 minutes: 2 out of 2. tone (one episode of mfaaaqw-svghsqelj-yicmoju limb movement): 2 out of 2. Amniotic fluid pocket (2 cm): 2 out of 2. Total score: 6 out of 8. The following biometric data were obtained: Biparietal diameter (BPD): 8.03 cm; head circumference (HC): 30.11 cm; abdominal circumference (AC): 29.36 cm; femur length (FL): 6.67 cm. These measurements are concordant. Estimated weight is 2215 g +/- 332.31 g, which correlates with the 18.4 percentile when 12/10/19 24 is used as estimated date of delivery. As single measurements, these parameters are each equal to the following estimated gestational ages w ith ranges of +/- 2 standard deviations: BPD: 32 weeks 2 days ( +/- 3 weeks 1 days). HC: 33 weeks 3 days ( +/- 3 weeks 0 days). AC: 33 weeks 2 days ( +/- 3 weeks 0 days). FL: 34 weeks 2 days ( +/- 3 weeks 0 days). estimated gestational age based solely on measurements from this exam is 33 weeks 2 days +/- 2 weeks 2 days. Baby B Fetus in variable presentation, transverse lie. The placenta is anterior. heart rate is 141 bp m. Deepest vertical amniotic fluid pocket 5.0, which is normal. Biophysical profile performed by the technologist: breathing (30 sec sustained breathing in 30 minutes): 0 out of 2. movement (3 gross body movements in 30 minutes: 2 out of 2. tone (one episode of kfvecda-asccipqxd-gcobept limb movement): 2 out of 2. Amniotic fluid pocket (2 cm): 2 out of 2. Total score: 6 out of 8. The following biometric data were obtained: Biparietal diameter (BPD): 7.95 cm; head circumference (HC): 30.23 cm; abdominal circumference (AC): 29.17 cm; femur length (FL): 6.7 cm. These measurements are concordant. Estimated weight is 2201 g +/- 330.19 g, which correlates with the 17.2 percentile when 12/10/19 24 is used as estimated date of delivery. As single measurements, these parameters are each equal to the following estimated gestational ages w ith ranges of +/- 2 standard deviations: BPD: 31 weeks 6 days +/- 3 weeks 1 days. HC: 33 weeks 4 days +/- 3 weeks 0 days. AC: 33 weeks 1 days +/- 3 weeks 0 days. FL: 34 weeks 3 days +/- 3 weeks 0 days. estimated gestational age based solely on measurements from this exam is 33 weeks 2 days +/- 2 weeks 2 days. IMPRESSION: Twin . Baby A in vertex presentation. Baby B in variable presentation. Biophysical profile for baby A is 6 out of 8. breathing not confidently identified during exami [facility]. Biophysical profile for baby B is 6 out of 8. breathing not confidently identified during the e xamination. Normal amniotic fluid volume by deepest vertical pocket method for both fetuses. biometrics detailed above. Long, closed cervix, well distant from the placenta. Reviewed, dictated and finalized at location K. [facility] IMPRESSION: Twin . Baby A in vertex presentation. Baby B in variable presentation. Biophysical profile for baby A is 6 out of 8. breathing not confidently i dentified during examination. Biophysical profile for baby B is 6 out of 8. breathing no
[2023-11-11 16:26] LABS: Basophils Absolute Auto 0.1 K/mm3 (0.0-0.1); Basophils Percent Auto 0.4 % (0.2-1.2); Eosinophils Percent Auto 0.2 % (0-4.4); Hemoglobin 9.8 g/dL (12.0-15.0); Immature Granulocyte Absolute 0.23 K/mm3 (0.00-0.031); Immature Granulocyte Percent A 1.8 % (0-0.5); Lymphocytes Absolute Auto 2.06 K/mm3 (0.9-3.2); Lymphocytes Percent Auto 15.7 % (18.3-44.2); Mean Corpuscular HGB Conc 31.6 g/dl (32-36); Mean Corpuscular Hemoglobin 24.7 pg (26-34); Mean Corpuscular Volume 78.3 fl (80-100); Mean Platelet Volume 12.9 fl (7.4-10.4); Monocytes Absolute Auto 1.1 K/mm3 (0.1-0.6); Monocytes Percent Auto 8.7 % (2.6-8.5); Neutrophils Absolute Auto 9.6 K/mm3 (1.3-6.7); Neutrophils Percent Auto 73.2 % (45.5-73.1); Platelet Count Result 221 k/mm3 (150-375); Red Blood Count 3.96 M/mm3 (4.2-5.4); Red Cell Distribution Width 13.9 % (11.5-14.5); White Blood Count 13.1 K/mm3 (4.5-10.0)
[2023-11-11 16:36] LABS: Alanine Aminotransferase 12 U/L (6-35); Albumin Level 3.6 g/dL (3.5-5.1); Alkaline Phosphatase 261 U/L (38-126); Anion Gap 7 mmol/L (8-16); Aspartate Amino Transferase 21 U/L (14-36); Bilirubin,Total 0.3 mg/dL (0.2-1.3); Blood Urea Nitrogen 5 mg/dL (7-17); Calcium 8.7 mg/dL (8.4-10.2); Carbon Dioxide 20 mmol/L (22-30); Chloride 109 mmol/L (98-107); Estimated Glomerular Filt Rate > 60; Glucose 91 mg/dL (65-110); Potassium 3.2 mmol/L (3.4-5.0); Sodium 136 mmol/L (137-145); Uric Acid 3.2 mg/dL (2.5-7.5)
[2023-11-11 16:55] LABS: Appearance Urine Turbid (Clear); Bacteria Urine 1+ /hpf; Bilirubin Urine Negative (Negative); Blood Urine Negative (Negative); Color Urine Yellow (Yellow); Glucose Urine UA Negative (Negative); Ketones Urine Trace mg/dL (Negative); Leukocyte Esterase Ur 3+ LEU/UL (NEGATIVE); Need Manual Microscopic Reviewed; Nitrate Urine Negative (Negative); Protein Urine 1+ mg/dL (Negative); RBC Urine 0-2 /hpf (0-2); Specific Grav Ur 1.017 (1.001-1.035); Squamous Epithelial Cell Urine Moderate /hpf (Few); WBC Urine 21-50 /hpf (0-3)
[2023-11-11 16:56] LABS: Add Urine Microscopic? YES
[2023-11-11 17:15] LABS: Total Protein Urine Random 29 mg/dL
[2023-11-11 17:16] LABS: Creatinine Urine 144.8 mg/dL
--- NOTE | 2023-11-11 18:16 | PC.NURSE ---
Dr. Tinoco notified of lab results, NST, and vital signs. Keep toco on, check patient, and give labetalol PO.
== END 2024-01-31 23:59 | disposition home or self-care (01) ==
LOC: ANHOBOP 15:45
PROVIDERS: PCP Obstetrics & Gynecology; Visit Provider Obstetrics & Gynecology
DX: O30.003 Twin pregnancy, unspecified number of placenta and unspecified number of amniotic sacs, third trimester (principal); O26.893 Other specified pregnancy related conditions, third trimester; R03.0 Elevated blood-pressure reading, without diagnosis of hypertension; Z3A.34 34 weeks gestation of pregnancy
CPT/HCPCS: 36415; 59025; 76815; 76819; 80053; 81001; 82570; 84156; 84550; 85025; 87077; 87086; 87088

== ENCOUNTER 2023-11-12 06:00 | Inpatient (IN) | payer OTHER, SELFPAY ==
[2023-11-11] VITALS (77 sets, daily range): BP systolic 145–171; BP diastolic 89–110; PULSE 70–103; TEMP 36.3; O2SAT 97–100
[2023-11-11] MEDS: LABETALOL HCL 100 MG TABLET 200 MG PO (18:33)
[2023-11-12] VITALS (200 sets, daily range): BP systolic 88–167; BP diastolic 56–107; PULSE 68–142; RESP 16; TEMP 36.1–37.2; O2SAT 98–100; BMI 26.5; BMI 26.6
[2023-11-12] MEDS: hydrALAZINE HCL 20 MG/ML VIAL 5 MG IV PUSH (00:31)
[2023-11-12] MEDS: hydrALAZINE HCL 20 MG/ML VIAL 10 MG IV PUSH (00:54)
[2023-11-12] MEDS: LABETALOL HCL INJ 100 MG/20 ML VIAL 20 MG IV PUSH (01:14)
--- NOTE | 2023-11-12 01:32 | PC.NURSE ---
Dr. Tinoco at bedside to evaluate pt after maternal hypertension protocol and blood pressures stabilized. Orders received to admit pt, administer magnesium, and induce with pitocin at 0600, see OBIX documentation.
--- NOTE | 2023-11-12 01:45 | PM.IMHP ---
H&P: HPI History of Present Illness Date/Time: 11/11/23 2100 Chief Complaint: Gestational diabetes Narrative: She is a g2 twin gestation, vtx,transverse. at 35 5/7 seen in office today for routine ob visit, she had bp 150/98. This is her second elevated blood pressure therefore she has diagnosis of gestational hypertension. She denies headache scotomata or RUQ pain. She was sent for labs which were normal. Her bp stayed elevated 140-150 /90s and she was started on labetolol. They did progress to severe range requiring IV Labetolol and hydralazine which decreased to 140/90. tracing reassuring. She was recommended for delivery due to gestational hypertension with severe range blood pressures. She did get betamethasone last week. She has been informed of risk of prematurity and risk of continuing with severe symptoms of gestational hypertension. She agrees with induction of labor. Review of Systems Review of Systems: All systems reviewed & are unremarkable except as noted in HPI and below Constitutional: Constitutional: Reports no additional constitutional complaints and Denies headache(s) Eyes: Eyes: Denies spots in vision ENT: Reports system reviewed and no additional complaints, except as documented and Denies headache(s) Cardiovascular: Cardiovascular: Denies chest pain and Denies dyspnea Respiratory: Respiratory: Denies dyspnea Gastrointestinal: Gastrointestinal: Reports no additional gastrointestinal complaints Genitourinary: Genitourinary: Reports amenorrhea Musculoskeletal: Musculoskeletal: Reports no additional musculoskeletal complaints Integumentary/Breasts: Skin/Breast: Denies breast mass and Denies rash Neurologic: Denies headache(s) Psychiatric: Psychiatric: Reports no additional psychiatric complaints [facility] Past Medical History Medical History Asthma Depression Elective Encounter for counseling regarding contraception induced hypertension Twin Surgical History Surgical History No significant past surgical history Family History Family History Grandparent Diabetes mellitus Acute myocardial infarction Father Hypertension Mother Family history of malignant neoplasm of breast in first degree relative, Onset Age: 47 Social History Social History Smoking status: Never smoker Tobacco type: cigarettes and e-cigarettes/vaping Second hand tobacco smoke exposure: No Alcohol intake: former Alcohol use details: DC'd when found out she was Substance use: never Substance use type: marijuana Do You Feel Safe in your Home?: Yes Lack of Transportation: No Lack of Food: Never True Current Housing: I Have Housing Concerned About Future Housing: No Difficulty Paying Gas/Electric Bills: No Difficulty Paying for Meds: No Currently Unemployed: No Education: High School Diploma/GED Difficulty w/ Childcare or Family Care: No Living arrangements: with family Occupation/Education: occupation Gender identity (if verbalized by the patient): Female Sexual Orientation (if Verbalized by the Patient): Straight or Heterosexual Spiritual care concerns: No Meds Home Medications and Allergies Home Medications Medication Instructions Recorded Confirmed Type prenat.vits,sera,xzg-cnra-gzxrt 1 tablet PO DAILY 04/25/23 11/12/23 History aspirin 81 mg tablet,delayed 81 mg PO DAILY 08/28/23 11/12/23 History release (Adult Aspirin Regimen) fluoxetine 20 mg capsule 20 mg PO DAILY 08/28/23 11/12/23 History clindamycin phosphate 1 % topical 1 applic topical BID PRN acne #60 08/29/23 11/12/23 Rx solution (Cleocin T) mL labetalol 200 mg tablet 200 mg PO Q12H #60 tabs 10/31/23 11/12/23 Rx Allergies
[2023-11-12] MEDS: LACTATED RINGERS 1,000 ML 125 ML IV CONT (07:36)
[2023-11-12] MEDS: LABETALOL HCL 100 MG TABLET 200 MG PO ×2 (07:38→21:44)
[2023-11-12] MEDS: AMPICILLIN 2 GM/NS 100 ML 2 GM/100 ML BAG IVPB (07:40)
[2023-11-12] MEDS: OXYTOCIN 30 UNITS/NS 500 ML 30 UNITS/500 ML BAG IV CONT ×2 (07:44→14:45)
[2023-11-12] MEDS: ONDANSETRON INJ 4 MG/2 ML VIAL IV PUSH (08:03)
--- NOTE | 2023-11-12 08:03 | WPDANESEPP ---
Anes - Eval Pre Procedure Procedure: labor epidural Date/Time: 11/12/23 08:03 Surgeon: [email or web address] Preop Diagnosis: pain during labor Pre Op Diagnosis: PIH Patient Data Age: 28 Gender: F Height: 1.7 m Weight: 76.8 kg Last Vital Signs Temp 36.3 C L 11/11/23 22:18 Pulse 83 11/12/23 08:02 BP 142/99 H 11/12/23 08:02 Pulse Ox 99 11/12/23 05:52 Allergies Allergy/AdvReac Type Severity Reaction Status Date / Time No Known Allergies Allergy Verified 11/11/23 15:06 Home Medications Medication Instructions Recorded Confirmed Type prenat.vits,sera,xul-nvfo-hsman 1 tablet PO DAILY 04/25/23 11/02/23 History aspirin 81 mg tablet,delayed 81 mg PO DAILY 08/28/23 11/02/23 History release (Adult Aspirin Regimen) fluoxetine 20 mg capsule 20 mg PO DAILY 08/28/23 11/02/23 History clindamycin phosphate 1 % topical 1 applic topical BID PRN acne #60 08/29/23 11/02/23 Rx solution (Cleocin T) mL labetalol 200 mg tablet 200 mg PO Q12H #60 tabs 10/31/23 11/02/23 Rx Laboratory Tests 11/12/23 07:49 WBC Pending RBC Pending Hgb Pending Hct Pending MCV Pending MCH Pending MCHC Pending RDW Pending Plt Count Pending MPV Pending Immature Gran % (Auto) Pending Neut % (Auto) Pending Lymph % (Auto) Pending [place] % (Auto) Pending Eos % (Auto) Pending Baso % (Auto) Pending Lymph # (Auto) Pending [place] # (Auto) Pending Eos # (Auto) Pending Baso # (Auto) Pending Abs Immat Gran (auto) Pending Absolute Neuts (auto) Pending Absolute Nucleated RBC Pending Nucleated RBC % Pending RPR Pending HIV 1&2 Ab/P24 Ag 4thGn Pending Patient hx anesthesia problems: none Family hx anesthesia problems: none Results Review: All pre-operative results and documents have been reviewed as part of the pre-operative evaluation. [facility] Past Medical History Medical History Asthma Depression Elective Encounter for counseling regarding contraception induced hypertension Twin Surgical History Surgical History No significant past surgical history Family History Family History Grandparent Diabetes mellitus Acute myocardial infarction Father Hypertension Mother Family history of malignant neoplasm of breast in first degree relative, Onset Age: 47 Social History Social History Smoking status: Former smoker Tobacco type: cigarettes and e-cigarettes/vaping Second hand tobacco smoke exposure: No Alcohol intake: former Alcohol use details: DC'd when found out she was Substance use: former Substance use type: marijuana Lack of Transportation: No Lack of Food: Never True Current Housing: I Have Housing Concerned About Future Housing: No Difficulty Paying Gas/Electric Bills: No Difficulty Paying for Meds: No Currently Unemployed: No Education: High School Diploma/GED Living arrangements: with family Occupation/Education: occupation Gender identity (if verbalized by the patient): Female Sexual Orientation (if Verbalized by the Patient): Straight or Heterosexual Spiritual care concerns: No Exam Day of Procedure 11/12/23 08:03
[2023-11-12 08:09] LABS: Basophils Percent Auto 0.3 % (0.2-1.2); Eosinophils Percent Auto 0.1 % (0-4.4); Hematocrit 30.8 % (37.0-47.0); Hemoglobin 9.7 g/dL (12.0-15.0); Immature Granulocyte Absolute 0.18 K/mm3 (0.00-0.031); Immature Granulocyte Percent A 1.4 % (0-0.5); Immature Platelet Fraction Pct 15.3 % (0.9-11.2); Lymphocytes Absolute Auto 1.69 K/mm3 (0.9-3.2); Lymphocytes Percent Auto 13.1 % (18.3-44.2); Mean Corpuscular HGB Conc 31.5 g/dl (32-36); Mean Corpuscular Hemoglobin 24.9 pg (26-34); Mean Platelet Volume 13.4 fl (7.4-10.4); Monocytes Percent Auto 7.7 % (2.6-8.5); Neutrophils Percent Auto 77.4 % (45.5-73.1); Platelet Count Result 219 k/mm3 (150-375); Red Cell Distribution Width 14.1 % (11.5-14.5); White Blood Count 12.9 K/mm3 (4.5-10.0)
--- NOTE | 2023-11-12 08:21 | LDADM ---
This patient, Jamie Garcia, was admitted to Labor/Delivery/Recovery 103 on 11/12/23 at 06:00. Plans for labor, pain management and were discussed with patient. Patient/family oriented to hospital policies and general routines including ID bracelet, bed and alarms, visiting hours, pain management, procedures, bathroom and other care routines, personal items, smoking policy, room service/diet and guest tray routines, infant security routines, and visiting hours. Patient/Family are encouraged to report perceived risks to care and to ask questions if they do not understand what they are told or what they should do. See OBIX for further documentation.
[2023-11-12 08:54] LABS: HIV 1/2 Ab P24 Ag Result Negative (Negative)
[2023-11-12] MEDS: AMPICILLIN 1 GM/NS 50 ML 1 GM/50 ML BAG IVPB (11:30)
--- NOTE | 2023-11-12 11:45 | P.PNOB_ITS ---
OB - PN: Subj Subjective Date/time seen: 11/12/23 11:45 Interval history: fht 124, 145 cat 1, ctx q 5, cervix 6/75/-2, AROM blood tinged, continue Pitocin, start Mag, bedside ultrasound vtx, vtx. OB - PN: Obj Data Labs 11/12/23 07:49 Labs: Laboratory Results - last 24 hr 11/12/23 07:49 WBC 12.9 H RBC 3.90 L Hgb 9.7 L Hct 30.8 L MCV 79.0 L MCH 24.9 L MCHC 31.5 L RDW 14.1 Plt Count 219 MPV 13.4 H Immature Gran % (Auto) 1.4 H Neut % (Auto) 77.4 H Lymph % (Auto) 13.1 L [place] % (Auto) 7.7 Eos % (Auto) 0.1 Baso % (Auto) 0.3 Lymph # (Auto) 1.69 [place] # (Auto) 1.0 H Eos # (Auto) 0.0 Baso # (Auto) 0.0 Abs Immat Gran (auto) 0.18 H Absolute Neuts (auto) 10.0 H Absolute Nucleated RBC 0.0 Nucleated RBC % 0.0 % Immature Plt Fraction 15.3 H HIV 1&2 Ab/P24 Ag 4thGn Negative Blood Type O Positive Antibody Screen Negative OB - PN A/P Time Spent With Patient Time: Total time spent is greater than 50% in coordination of care (as documented) at patient's floor/unit and/or counseling patient:
[2023-11-12] MEDS: MAGNESIUM SULF 4 GM/WATER100ML 4 GM/100 ML BAG IVPB (11:55)
[2023-11-12] MEDS: LACTATED RINGERS 1,000 ML 75 ML IV CONT (11:56)
[2023-11-12 12:09] LABS: Rapid Plasma Reagin Non-Reactive (NonReactive)
[2023-11-12] MEDS: MAGNESIUM SULF 20GM/WATER500ML 500 ML 50 MG IV CONT ×2 (12:23→23:08)
[2023-11-12 13:32] LABS: Alanine Aminotransferase 12 U/L (6-35); Albumin Level 3.3 g/dL (3.5-5.1); Alkaline Phosphatase 273 U/L (38-126); Anion Gap 8 mmol/L (8-16); Aspartate Amino Transferase 23 U/L (14-36); Bilirubin,Total 0.5 mg/dL (0.2-1.3); Blood Urea Nitrogen 4 mg/dL (7-17); Calcium 8.7 mg/dL (8.4-10.2); Carbon Dioxide 18 mmol/L (22-30); Chloride 108 mmol/L (98-107); Estimated CRCL calculation 136 ml/min; Estimated Glomerular Filt Rate > 60; Glucose 85 mg/dL (65-110); Sodium 134 mmol/L (137-145); Uric Acid 3.2 mg/dL (2.5-7.5)
--- NOTE | 2023-11-12 14:34 | PM.OBPRVD ---
OB - Vaginal Delivery Note Procedure Delivery date: 11/12/23 Events: Gestational Hypertension (severe range blood pressure) and Positive Group B Strep (GBS) Induction method: Per Pitocin Protocol Delivery augmentation: Rupture of Membranes Delivery monitor: External FHT Route of delivery: Episiotomy description: None Laceration Description: None Quantitative Blood Loss (ml): 250 Anesthesia type: Epidural Disposition: Floor Complications: No immediate complications Narrative: She was admitted for gestational hypertension. She was having contractions and cervix did change to 4cm. PIH labs normal. She was initially started on oral Labetolol. Blood pressures increased to severe range. She did get IV Hydralazine which improved blood pressures. She was recommended for induction due to gest hypertension with severe symptoms with blood pressures. Bedside ultrasound showed vertex/vertex. Cervical exam the morning of 11/12/23. Oral labetolol continued. Ampicillin and Pitocin started the morning of 11/12. She had epidural placed on request. She had AROM she was six cm. She continued to progress to complete. She was taken to OR double set up. She pushed several times and delivered a male infant, nose and mouth suctioned at perineum, baby wasvigorously crying, placed on maternal abdomen, cord doubly clamped and cute. Peds available. Baby B tracing reassuring. Bedside ultrasound showed baby B in vertex. Amniotic sac of B AROM clear fluid. Baby station and immediately was +2 she pushed twice and delivered a female infant. Nose and mouth suctioned at perineum. Tight nuchal cord surgically reduced. Infant handed to nursery staff. Cord blood and cord gases from both cords obtained. Pitocin started. Gentle traction on cords and placentas delivered spontaneously with trailing membranes with ring forceps. Uterine tone good. No lacerations. Patient tolerated procedure well. [place] Baby Date of : 11/12/23 Time of : 14:08 Weeks of gestation at delivery: 35 gender: Male Weight (pounds): 4 Weight (ounces): 10 presentation: vertex position: Right Occiput Anterior Placenta delivery description: Spontaneous Cord Vessel Description: 3 Vessels and Clamped/Cut score one minute: 9 score five minutes: 9 Twins 2: Date of : 11/12/23 Time of : 14:12 Weeks of gestation at delivery: 35 gender: Female Weight (pounds): 4 Weight (ounces): 7 presentation: vertex position: Left Occiput Anterior Placental delivery description: Expressed Cord Vessel Description: 3 Vessels, Nuchal Cord, Tight (x2) and Reduced (surgically) score one minute: 8 score five minutes: 9 AMG Delivery Billing Delivery Delivery: Delivery Charge
[2023-11-12] MEDS: ACETAMINOPHEN 325 MG TABLET 650 MG PO (17:14)
[2023-11-12] MEDS: IBUPROFEN 600 MG TABLET PO (17:15)
[2023-11-12] MEDS: WITCH HAZEL 40 PADS 1 PAD TOPICAL (17:17)
[2023-11-12] MEDS: BENZOCAINE 20% AER SPR (*SP) 56 GM CAN 1 SPRAY TOPICAL (17:17)
[2023-11-13] VITALS (11 sets, daily range): BP systolic 131–162; BP diastolic 90–105; PULSE 71–85; RESP 18–20; TEMP 36.4–37; O2SAT 99–100
[2023-11-13 06:21] LABS: Hematocrit 26.8 % (37.0-47.0); Hemoglobin 8.4 g/dL (12.0-15.0)
--- NOTE | 2023-11-13 07:35 | WPDANLDPN2 ---
Anes-Prog Note L&D Date/Time: 11/13/23 07:35 Comfortable throughout: labor and delivery Neuraxial method: epidural Epidural/Spinal procedure site: clean & non-tender Neuro status: Neuro function grossly intact. Cardiovascular status: normal Respiratory status: normal Airway patency: baseline Mental status: baseline Post-Op hydration status: normal Vital Signs: Last Vital Signs Temp 97.6 F 11/13/23 05:30 Pulse 85 11/13/23 05:30 Resp 18 11/13/23 05:30 BP 141/90 H 11/13/23 05:30 Pulse Ox 100 11/13/23 05:30 O2 Del Method Room Air 11/12/23 08:11 Pain score (VAS): 0/10 I/O: Intake & Output 11/12/23 11/12/23 11/13/23 15:59 23:59 07:59 Intake Total 4106 740 6896 Output Total 3150 Balance 1500 500 -1500 Post-procedural complaints: none Patient feedback: Patient satisfied with anesthetic care.
[2023-11-13] MEDS: MAGNESIUM SULF 20GM/WATER500ML 500 ML 50 MG IV CONT (09:46)
[2023-11-13] MEDS: ACETAMINOPHEN 325 MG TABLET 650 MG PO (09:48)
[2023-11-13] MEDS: MULTIVIT/MIN/PREN/FOL AC/IRON TABLET 1 TAB PO (09:48)
[2023-11-13] MEDS: LABETALOL HCL 100 MG TABLET 200 MG PO ×2 (09:49→22:12)
[2023-11-13] MEDS: POLYSACCHARIDE IRON COMPLEX 150 MG CAPSULE PO ×2 (09:56→17:16)
[2023-11-13] MEDS: DOCUSATE SODIUM 100 MG CAPSULE PO ×2 (09:57→17:16)
--- NOTE | 2023-11-13 11:00 | PM.OBPNVD ---
OB - PN: Subj Subjective Date/time seen: 11/13/23 11:00 Interval history: She had mild headache relieved with tylenol, no scotomata or RUQ pain. Patient comments: pain well controlled, tolerating diet and other (Decreasing lochia.) baby status: doing well and nursing well OB - PN: Obj Data Labs 11/13/23 05:22 11/12/23 07:49 Labs: Laboratory Results - last 24 hr 11/12/23 11/13/23 07:49 05:22 Hgb 8.4 L Hct 26.8 L Sodium 134 L Potassium 3.0 L Chloride 108 H Carbon Dioxide 18 L Anion Gap 8 BUN 4 L Creatinine 0.50 L Estim Creat Clear Calc 136 Estimated GFR > 60 Glucose 85 Uric Acid 3.2 Calcium 8.7 Total Bilirubin 0.5 AST 23 ALT 12 Alkaline Phosphatase 273 H Total Protein 7.0 Albumin 3.3 L RPR Non-reactive OB - PN A/P Assessment and Plan (1) Delivery normal: Code(s): O80 - Encounter for full-term uncomplicated delivery Status: Acute Assessment and Plan: routine post care. (2) Gestational hypertension: Code(s): O13.9 - Gestational [-induced] hypertension without significant proteinuria, unspecified trimester Status: Acute Assessment and Plan: No severe symptoms. Blood pressures elevated, not severe range. Will continue Labetolol. Continue magnesium until 24 hour after delivery. Plan day: 1 Plan: routine care Comments: Patient doing well. Time Spent With Patient Time: Total time spent is greater than 50% in coordination of care (as documented) at patient's floor/unit and/or counseling patient: Exam Psych: Affect: normal affect Other: Abd: fundus firm below umbilicus, nontender Perineum: healing Ext: nontender
[2023-11-13] MEDS: IBUPROFEN 600 MG TABLET PO (17:15)
[2023-11-14] VITALS (9 sets, daily range): BP systolic 120–157; BP diastolic 77–100; PULSE 64–82; RESP 16–20; TEMP 36.3–37.4; O2SAT 100
--- NOTE | 2023-11-14 07:00 | PC.NURSE ---
PT introductions made and plan of care discussed per post , twins, daily care activities, pain management, and bottle feeding. late infants. PT and spouse both recipients of such instructions and not barriers to learning identified at this time. PT received such instructions per one to one discussion, mom baby care guide and demonstrations. PT verbalized understanding of such care.
[2023-11-14] MEDS: LABETALOL HCL 100 MG TABLET 200 MG PO (11:03)
[2023-11-14] MEDS: DOCUSATE SODIUM 100 MG CAPSULE PO ×2 (11:05→17:45)
[2023-11-14] MEDS: ACETAMINOPHEN 325 MG TABLET 650 MG PO ×2 (11:05→17:44)
[2023-11-14] MEDS: POLYSACCHARIDE IRON COMPLEX 150 MG CAPSULE PO ×2 (11:06→17:45)
[2023-11-14] MEDS: IBUPROFEN 600 MG TABLET PO ×2 (11:06→17:45)
[2023-11-14] MEDS: TETANUS,DIPHTHERIA,AC PERTUSSIS ADULT (0.5 ML) BOOSTRIX IM (11:07)
[2023-11-14] MEDS: MULTIVIT/MIN/PREN/FOL AC/IRON TABLET 1 TAB PO (11:07)
--- NOTE | 2023-11-14 15:33 | PM.OBPNVD ---
OB - PN: Subj Subjective Date/time seen: 11/14/23 15:33 Interval history: She had mild headache by neck, no scotomata, no RUQ pain. Lochia decreasing, no leg pain. Patient comments: pain well controlled, tolerating diet and other (Decreasing lochia.) baby status: doing well OB - PN: Obj Data Labs 11/13/23 05:22 11/12/23 07:49 OB - PN A/P Assessment and Plan (1) Delivery normal: Code(s): O80 - Encounter for full-term uncomplicated delivery Status: Acute Assessment and Plan: Routine care. (2) Gestational hypertension: Code(s): O13.9 - Gestational [-induced] hypertension without significant proteinuria, unspecified trimester Status: Acute Assessment and Plan: Blood pressures labile, not severe range, will adjust Labetolol dose. Continue to monitor blood pressures. No severe symptoms. Plan day: 2 Comments: Discharge instructions provided. Time Spent With Patient Time: Total time spent is greater than 50% in coordination of care (as documented) at patient's floor/unit and/or counseling patient: Time with patient: less than 15 minutes Exam Psych: Affect: normal affect Other: Abd: fundus firm below umbilicus, nontender Ext: nontender
--- NOTE | 2023-11-14 15:45 | PM.OBDSVD ---
DS: Admitting Diagnosis Discharge Date 11/16/23 Admitting Diagnosis 11/11/23 DS: Discharge Diagnosis Discharge Diagnosis (1) Delivery normal: Code(s): O80 - Encounter for full-term uncomplicated delivery Status: Acute (2) Gestational hypertension: Code(s): O13.9 - Gestational [-induced] hypertension without significant proteinuria, unspecified trimester Status: Acute (3) Twin gestation with second : Code(s): O30.009 - Twin , unspecified number of placenta and unspecified number of amniotic sacs, unspecified trimester Status: Acute OB - DS: Summary Hospital Course Hospital Course: She was admitted to Labor and Delivery after being sent down for elevated blood pressures. PIH labs normal. Her blood pressures remained elevated and into severe range. Blood pressures did improve with antihypertensives and she was recommended for delivery for severe range blood pressures. She was ashley and her cervix did change to 5 cm the following morning. She was started on Pitocin and had AROM and Magnesium started. She had an uncomplicate vaginal delivery with both babies. she was continued on Magnesium for 24 hours and continued Labetolol for increased blood pressures but not severe range. Labetolol was increased to 400mg every 12 hours on day 2. Blood pressures continued to be labile. Procardia was added and blood pressures improved on day 4. She was discharged to home with both babies on day 4. OB Procedures : Ultrasound OB Procedures Intrapartum: Spontaneous Vag Delivery OB Procedures: : None Peripartum Data Delivery Method: Natural Vaginal Laceration Description: None Episiotomy description: None complications: none Status at Discharge Functional status at discharge: independent ambulation Time Spent with Patient Time attestation: Total time spent providing and/or coordinating discharge services: Exam Const: General: cooperative Orientation/consciousness: oriented to person, oriented to place and oriented to time HENMT: Face/Nose/Sinus: Normal external nose present Eyes: General: appearance normal, both eyes and all related structures Resp: Effort & Inspection: normal respiratory effort GI: Inspection: normal to inspection Skin: General skin exam: normal color Neuro: General: oriented to person, oriented to place and oriented to time Extrem: General: normal to inspection and no calf tenderness Psych: Appearance: grossly normal Mental Status: mental status grossly normal DS: Data Data Completed and Pending Pending studies at discharge: Pending at discharge 11/12/23 14:18 Surgical [PTH] Routine Discharge Plan Discharge Attending physician on discharge: Abe Tinoco Consulting providers: Mahad العراقي; Guillermina Kelley; Sweetie Ponce Discharging Clinician: Sweetie Ponce Patient Disposition: Home, Self-Care Activity: may shower and pelvic rest Diet: low sodium Discharge Instructions: Education: Mom and Baby Guide Given to: Mother Follow-Up: Call your delivering provider's office for an appointment to be seen in: 1 Week Mom and baby should come to the [facility] for the follow-up appointment. Appointment Date/Time: November 18, 2023 at 8:00 am What to expect at your follow-up visit: Blood Pressure Check Physical Assessment Call [phone] if you are unable to keep your appointment time. BREAST CARE: * Wear a snug supportive bra. * For engorgement discomfort: Bottle Feeding: * May apply ice packs PERINEAL CARE: * Until bleeding stops, use your abran bottle after urinating * Change your pad frequently throughout the day * You may take sitz baths several times a day (fill your bathtub with warm water and soak for 20 minutes.) Do NOT bathe in the water * No tub baths until seen by your physician -
[2023-11-14] MEDS: LABETALOL HCL 100 MG TABLET 400 MG PO (20:08)
[2023-11-15] VITALS (10 sets, daily range): BP systolic 133–166; BP diastolic 89–106; PULSE 62–83; RESP 16–18; TEMP 36.7–37.1; O2SAT 98–100
[2023-11-15] MEDS: WITCH HAZEL 40 PADS 1 PAD TOPICAL (04:05)
--- NOTE | 2023-11-15 05:37 | PC.NURSE ---
DR. HANEY NOTIFIED OF SUSTAINED ELEVATED BLOOD PRESSURES. ORDERS RECEIVED TO GIVE MORNING DOSE OF LABETALOL NOW.
[2023-11-15] MEDS: LABETALOL HCL INJ 100 MG/20 ML VIAL (05:40)
[2023-11-15] MEDS: LABETALOL HCL 100 MG TABLET 400 MG PO ×3 (05:40→22:16)
--- NOTE | 2023-11-15 07:07 | PC.NURSE ---
Per night RN, Labetalol 400 mg was given at 0540 today.
[2023-11-15] MEDS: MULTIVIT/MIN/PREN/FOL AC/IRON TABLET 1 TAB PO (07:57)
[2023-11-15] MEDS: IBUPROFEN 600 MG TABLET PO ×2 (07:57→13:54)
[2023-11-15] MEDS: DOCUSATE SODIUM 100 MG CAPSULE PO ×2 (07:57→16:16)
[2023-11-15] MEDS: POLYSACCHARIDE IRON COMPLEX 150 MG CAPSULE PO ×2 (07:57→16:16)
--- NOTE | 2023-11-15 08:57 | PM.OBPNVD ---
OB - PN: Subj Subjective Date/time seen: 11/15/23 08:57 Interval history: No PIH symptoms despite high BP's Patient comments: no complaints and pain well controlled [place] baby status: doing well OB - PN: Obj Data Labs 11/13/23 05:22 11/12/23 07:49 OB - PN A/P Assessment and Plan (1) induced hypertension: Code(s): O13.9 - Gestational [-induced] hypertension without significant proteinuria, unspecified trimester Status: Acute Assessment and Plan: BP's remain quite elevated. BID dosing of Labetalol not holding. Will increase to 400 mg Q 8 hours and observe for at least one more day. Plan day: 3 Plan: routine care Time Spent With Patient Time: Total time spent is greater than 50% in coordination of care (as documented) at patient's floor/unit and/or counseling patient: Exam : Bimanual exam- vagina & uterus: other (Uterus firm, nt @U)
[2023-11-15] MEDS: NIFEdipine 10 MG CAPSULE PO (17:13)
[2023-11-16] VITALS (9 sets, daily range): BP systolic 115–175; BP diastolic 71–107; PULSE 73–94; RESP 16; TEMP 37.2; O2SAT 100
[2023-11-16] MEDS: IBUPROFEN 600 MG TABLET PO (04:02)
[2023-11-16] MEDS: NIFEdipine 10 MG CAPSULE PO (04:20)
[2023-11-16] MEDS: LABETALOL HCL 100 MG TABLET 400 MG PO ×2 (06:22→14:14)
[2023-11-16] MEDS: MULTIVIT/MIN/PREN/FOL AC/IRON TABLET 1 TAB PO (09:06)
[2023-11-16] MEDS: POLYSACCHARIDE IRON COMPLEX 150 MG CAPSULE PO ×2 (09:06→17:03)
[2023-11-16] MEDS: NIFEdipine 30 MG TAB.ER.24 PO ×2 (09:06→12:08)
[2023-11-16] MEDS: DOCUSATE SODIUM 100 MG CAPSULE PO ×2 (09:06→17:03)
--- NOTE | 2023-11-16 11:55 | PM.OBPNVD ---
OB - PN: Subj Subjective Date/time seen: 11/16/23 11:55 Interval history: No PIH symptoms despite high BP's. No side effects with meds. Patient comments: no complaints baby status: doing well (twins ready for dc when mom is stable) OB - PN: Obj Data Labs 11/13/23 05:22 11/12/23 07:49 OB - PN A/P Assessment and Plan (1) induced hypertension: Code(s): O13.9 - Gestational [-induced] hypertension without significant proteinuria, unspecified trimester Status: Acute Assessment and Plan: BP's remain elevated. No other symptoms. Added Procardia XL 30 mg and now under 160's systolic yet still >100 diastolic. Will increase to XL 60 mg BID and give second 30 mg now. If can get <160/100 will dc home this pm. Plan Plan: routine care and discharge home (possible dc today) Time Spent With Patient Time: Total time spent is greater than 50% in coordination of care (as documented) at patient's floor/unit and/or counseling patient: Exam : Bimanual exam- vagina & uterus: other (Uterus firm, nt @U)
[2023-11-16] MEDS: NIFEdipine 30 MG TAB.ER.24 60 MG PO (17:03)
[2023-11-18 09:16] VITALS: BP 117/89; PULSE 89; RESP 20; TEMP 36.9; O2SAT 100
== END 2023-11-16 18:45 | disposition home or self-care (01) | DRG 560 ==
LOC: ANHLDR 06:39 → ANHOBPP 06:39 → ANHLDR 16:24 → ANHOB2 18:19
PROVIDERS: Admitting Provider Obstetrics & Gynecology; Visit Provider Obstetrics & Gynecology
DX: O13.4 Gestational [pregnancy-induced] hypertension without significant proteinuria, complicating childbirth (principal); Z37.2 Twins, both liveborn; Z3A.35 35 weeks gestation of pregnancy; O60.14X1 Preterm labor third trimester with preterm delivery third trimester, fetus 1; O60.14X2 Preterm labor third trimester with preterm delivery third trimester, fetus 2; O30.043 Twin pregnancy, dichorionic/diamniotic, third trimester; O99.824 Streptococcus B carrier state complicating childbirth; O69.1XX2 Labor and delivery complicated by cord around neck, with compression, fetus 2
CPT/HCPCS: 36415; 59025; 80053; 81001; 82570; 84156; 84550; 85014; 85018; 85025; 85055; 86592; 86703; 86850; 86900; 86901; 87077; 87086; 87088; 88307; 90715; A9270; G0432; J0290; J0360; J2405; J2590; J2795; J3475; J7120

== ENCOUNTER 2025-02-27 08:25 | Emergency (ER) | payer SELFPAY ==
--- OUTSIDE RECORDS SUMMARY | 2025-02-27 08:27 | XMS_ITS | Clinical Summary ---
Author Organization [facility] Address [address] [place] [address] Care Team Providers Care Litigation Associate Name Role Phone Unavailable Primary Care Provider Unavailabl e Source Comments [facility] [employer],non-owned Affiliates and Associated Physician Practices is amultiple site organization consisting of ambulatory clinics and hospital sitesin [place], [place], [place] and [place]. This disclosure is being madepursuant to the Care Everywhere program and may not contain all information available regarding this patient. Last updated 18.[facility] [employer] Social History Tobacco Use Types Packs/Day Years Used Date Smoking Tobacco: Never Assessed Sex and Gender Information Value Date Recorded Sex Assigned at Not on file Gender Identity Not on file Sexual Orientation Not on file Plan of Treatment Health Maintenance Due Date Last Done Comments PAP SMEAR 1995 HIV SCREENING 2010 HEPATITIS C SCREENING 08/08/2013 DTAP/TDAP/TD VACCINES (1 - Tdap) 2014 HEPATITIS B VACCINE (1 of 3 - 19+ 3-dose series) 2014 COVID-19 VACCINE (1 - 2023-2 5 season) 2024 INFLUENZA VACCINE (#1) 2024 DEPRESSION SCREENING 11/24/2024 ZOSTER VACCINE (1 of 2) 2045 HIB VACCINE Aged Out No longer eligi ble based on patient's age to complete this topic HPV VACCINE Aged Out No longer eligi ble based on patient's age to complete this topic MENINGOCOCCAL (Group B) VACC INE SHARED DECISION-MAKING Aged Out No longer eligibl e based on patient's age to complete this topic MENINGOCOCCAL GROUPS A/C/Y/W VACCINE Aged Out No longer eligible b ased on patient's age to complete this topic PNEUMOCOCCAL VACCINE Aged Out No long er eligible based on patient's age to complete this topic
--- OUTSIDE RECORDS SUMMARY | 2025-02-27 08:27 | XMS_ITS | Clinical Summary ---
Author Organization [employer] [address] - [address] Address [address] [facility] 3rd [place] [address] Phone Care Team Providers Care Bookkeeping Teacher Name Role Phone Unavailable Primary Care Provider Unavailabl e Encounters Date Type Department Care Team Description 12/22/2024 External Device Data ST[facility] ABSTRACTION Provider, Abstract from Last 3 Months Social History Tobacco Use Types Packs/Day Years Used Date Smoking Tobacco: Never Assessed Comments Unknown Sex and Gender Information Value Date Recorded Sex Assigned at Not on file Legal Sex Female 11:36 AM CDT Gender Identity Not on file Sexual Orientation Not on file Plan of Treatment Health Maintenance Due Date Last Done Comments DTAP/TDAP/TD VACCINES (1 - Tdap) 2014 HEPATITIS B VACCINES (1 of 3 - 19+ 3-dose series) 2014 CERVICAL CANCER SCREENING 2016 HPV/Cotest (21-29) 2016 PAP SMEAR 2016 PAP SMEAR 2016 INFLUENZA VACCINE (#1) 2024 HPV VACCINES Aged Out No longer eligi ble based on patient's age to complete this topic PNEUMOCOCCAL VACCINE 0-49 YEARS Aged Out No longer eligible based on patient's age to complete this topic Insurance [facility] MEDICAID
[2025-02-27 08:41] VITALS: BP 138/92; PULSE 87; RESP 16; TEMP 36.4; O2SAT 100
--- OUTSIDE RECORDS SUMMARY | 2025-02-27 09:23 | XMS_ITS | Clinical Summary ---
Author Organization [facility] Address [address] [facility] [place] [address] Care Team Providers Care Diagnostics Sales Developer Name Role Phone Unavailable Primary Care Provider Unavailabl e Source Comments [facility] [employer],non-owned Affiliates and Associated Physician Practices is amultiple site organization consisting of ambulatory clinics and hospital sitesin [place], [place], [place] and [place]. This disclosure is being madepursuant to the Care Everywhere program and may not contain all information available regarding this patient. Last updated 18.[facility] [employer] Social History Tobacco Use Types Packs/Day Years [...]
--- OUTSIDE RECORDS SUMMARY | 2025-02-27 09:23 | XMS_ITS | Clinical Summary ---
Author Organization [employer] [address] - [address] Address [address] [facility] 3rd [place] [address] Phone Care Team Providers Care Civil Geotechnical Engineer Name Role Phone Unavailable Primary Care Provider [...] patient's age to complete this topic Insurance [facility] MEDICAID
[2025-02-27 09:31] LABS: Add Urine Microscopic? YES; Appearance Urine Cloudy (Clear); Bacteria Urine 4+ /hpf; Bilirubin Urine Negative (Negative); Blood Urine Negative (Negative); Color Urine Yellow (Yellow); Glucose Urine UA Negative (Negative); Ketones Urine Trace mg/dL (Negative); Leukocyte Esterase Ur Negative LEU/UL (Negative); Need Manual Microscopic Reviewed; Nitrate Urine Negative (Negative); Non Pathogenic Casts 0-2; Protein Urine 1+ mg/dL (Negative); RBC Urine 0-2 /hpf (0-2); Specific Grav Ur 1.044 (1.001-1.035); Squamous Epithelial Cell Urine Moderate /hpf (Few); pH Urine 6.5 (5.0-9.0)
[2025-02-27] MEDS: SODIUM CHLORIDE 0.9% IV 1,000 ML 999 ML IV CONT (09:36)
[2025-02-27] MEDS: ONDANSETRON INJ 4 MG/2 ML VIAL IV PUSH (09:37)
[2025-02-27] MEDS: MORPHINE SULFATE (*CRX) 4 MG/ML INJ IV PUSH (09:37)
[2025-02-27 09:45] VITALS: BP 146/98; PULSE 60; RESP 14; O2SAT 98
[2025-02-27 09:46] LABS: Basophils Percent Auto 0.5 % (0.2-1.2); Eosinophils Absolute Auto 0.2 K/mm3 (0-0.3); Eosinophils Percent Auto 2.5 % (0-4.4); Hematocrit 39.5 % (37.0-47.0); Hemoglobin 12.6 g/dL (12.0-15.0); Immature Granulocyte Absolute 0.03 K/mm3 (0.00-0.031); Immature Granulocyte Percent A 0.4 % (0-0.5); Lymphocytes Absolute Auto 1.44 K/mm3 (0.9-3.2); Lymphocytes Percent Auto 18.3 % (18.3-44.2); Mean Corpuscular HGB Conc 31.9 g/dl (32-36); Mean Corpuscular Hemoglobin 26.2 pg (26-34); Mean Corpuscular Volume 82.1 fl (80-100); Mean Platelet Volume 11.8 fl (7.4-10.4); Monocytes Absolute Auto 0.6 K/mm3 (0.1-0.6); Monocytes Percent Auto 7.6 % (2.6-8.5); Neutrophils Absolute Auto 5.6 K/mm3 (1.3-6.7); Neutrophils Percent Auto 70.7 % (45.5-73.1); Platelet Count Result 294 k/mm3 (150-375); Red Blood Count 4.81 M/mm3 (4.2-5.4); Red Cell Distribution Width 13.2 % (11.5-14.5); White Blood Count 7.9 K/mm3 (4.5-10.0)
[2025-02-27 09:57] LABS: Alanine Aminotransferase 17 U/L (6-35); Albumin Level 4.4 g/dL (3.5-5.1); Alkaline Phosphatase 90 U/L (38-126); Anion Gap 13 mmol/L (4-12); Aspartate Amino Transferase 21 U/L (14-36); Bilirubin,Total 0.2 mg/dL (0.2-1.3); Blood Urea Nitrogen 8 mg/dL (7-17); Calcium 9.1 mg/dL (8.4-10.2); Carbon Dioxide 17 mmol/L (22-30); Chloride 110 mmol/L (98-107); Estimated CRCL calculation 100 ml/min; Estimated Glomerular Filt Rate > 60; Glucose 129 mg/dL (65-110); Lipase 55 U/L (23-300); Potassium 3.4 mmol/L (3.4-5.0); Sodium 140 mmol/L (137-145)
[2025-02-27 09:58] LABS: Lactic Acid Reflex 2.4 mmol/L (0.7-2.0)
[2025-02-27 10:07] LABS: Atypical Lymphocytes Present; Platelet Estimate Adequate (Adequate); Schistocytes None Seen
[2025-02-27 10:32] VITALS: BP 138/97; PULSE 63; RESP 14; O2SAT 100
--- NOTE | 2025-02-27 10:43 | ED_ITS ---
HPI - General Adult General Chief complaint: Nausea/Vomiting/Diarrhea Stated complaint: N/V Time Seen by Provider: 02/27/25 08:59 History of Present Illness HPI narrative: Patient is a 29-year-old female who presents ER with nausea and vomiting. Began yesterday. Continued through the night and into the morning. Associated with 3 episodes of diarrhea. No fevers or chills. No known sick contacts. Denies Raynaud's/sore throat/cough. Related Data Home Medications ?Medication ?Instructions ?Recorded ?Confirmed ?Last Taken ?Type fluoxetine 20 mg capsule 20 mg PO DAILY 08/28/23 06/04/24 1 Day Ago History ~11/11/23 20 mg Allergies Allergy/AdvReac Type Severity Reaction Status Date / Time No Known Allergies Allergy Verified 06/04/24 10:40 Review of Systems 2 Review of Systems: All systems reviewed & are unremarkable except as noted in HPI and below Constitutional: Constitutional: Reports no additional constitutional complaints Cardiovascular: Cardiovascular: Reports no additional cardiovascular complaints Respiratory: Respiratory: Reports no additional respiratory complaints Gastrointestinal: Gastrointestinal: Reports no additional gastrointestinal complaints Genitourinary: Genitourinary: Reports no additional female genitourinary complaints [facility] Past Medical History Medical History Asthma Depression Elective Encounter for counseling regarding contraception induced hypertension Twin Surgical History Surgical History No significant past surgical history Family History Family History Grandparent Diabetes mellitus Acute myocardial infarction Father Hypertension Mother Family history of malignant neoplasm of breast in first degree relative, Onset Age: 47 Social History Social History Smoking status: Never smoker Tobacco type: cigarettes and e-cigarettes/vaping Second hand tobacco smoke exposure: No Alcohol intake: former Alcohol use details: DC'd when found out she was Substance use: never Substance use type: marijuana Do You Feel Safe in your Home?: Yes Lack of Transportation: No Lack of Food: Never True Current Housing: I Have Housing Concerned About Future Housing: No Difficulty Paying Gas/Electric Bills: No Difficulty Paying for Meds: No Currently Unemployed: No Education: High School Diploma/GED Difficulty w/ Childcare or Family Care: No Living arrangements: with family Occupation/Education: occupation Gender identity (if verbalized by the patient): Female Sexual Orientation (if Verbalized by the Patient): Straight or Heterosexual Spiritual care concerns: No Exam 2 Narrative: GENERAL: Uncomfortable-appearing, well-nourished, and in no acute distress. HEAD: Normocephalic, atraumatic. ENT: Mucous membranes moist. NECK: Supple. CHEST: Clear to auscultation. No respiratory distress. HEART: Regular rate and rhythm. Normal peripheral pulses. ABDOMEN: Soft, nontender, nondistended. No CVA tenderness. EXTREMITIES: Normal range of motion. No edema. SKIN: Warm, dry, no rash. NEURO: Alert and oriented x3. PSYCH: Normal mood and affect. Course Course Emergency Course: Feels improved with fluids and antiemetics. Appropriate for discharge home. Will treat urine for possible UTI though it may be a component of contamination. Vital Signs Vital signs: Vital Signs Temperature 97.5 F L 02/27/25 08:41 Pulse Rate 87 02/27/25 08:41 Respiratory Rate 16 02/27/25 08:41 Blood Pressure 138/92 H 02/27/25 08:41 Pulse Oximetry 100 02/27/25 08:41 Temperature 97.5 F L 02/27/25 08:41 Pulse Rate 63 02/27/25 10:32 Respiratory Rate 14 02/27/25 10:32 Blood Pressure 138/97 H 02/27/25 10:32 Pulse Oximetry 100 02/27/25 10:32 Medical Decision Making Vital Signs Vital Signs: Vital Signs Temperature 97.5 F L 02/27/25 08:41 Pulse Rate 87 02/27/25 08:41 Respiratory Rate 16 02/27/25 08:41 Blood Pressure 138/92 H 02/27/25 08:41 Pulse Oximetry 100 02/27/25 08:41 Temperature 97.5 F L 02/27/25 08:41 Pulse Rate 63 02/27/25 10:32 Respiratory Rate 14 02/27/25 10:32 Blood Pressure 138/97 H 02/27/25 10:32 Pulse Oximetry 100 02/27/25 10:32 Lab Data 02/27/25 09:40 02/27/25 09:40 Labs: Lab Results 02/27/25 02/27/25 Range/Units 09:17 09:40 WBC 7.9 (4.5-10.0) K/mm3 RBC 4.81 (4.2-5.4) M/mm3 Hgb 12.6 D (12.0-15.0) g/dL Hct 39.5 (37.0-47.0) % MCV 82.1 (80-100) fl MCH 26.2 (26-34) pg MCHC 31.9 L (32-36) g/dl RDW 13.2 (11.5-14.5) % Plt Count 294 (150-375) k/mm3 MPV 11.8 H (7.4-10.4) fl Immature Gran % (Auto) 0.4 (0-0.5) % Neut % (Auto) 70.7 (45.5-73.1) % Lymph % (Auto) 18.3 (18.3-44.2) % Smyth % (Auto) 7.6 (2.6-8.5) % Eos % (Auto) 2.5 (0-4.4) % Baso % (Auto) 0.5 (0.2-1.2) % Lymph # (Auto) 1.44 (0.9-3.2) K/mm3 Smyth # (Auto) 0.6 (0.1-0.6) K/mm3 Eos # (Auto) 0.2 (0-0.3) K/mm3 Baso # (Auto) 0.0 (0.0-0.1) K/mm3 Abs Immat Gran (auto) 0.03 (0.00-0.031) K/mm3 Absolute Neuts (auto) 5.6 (1.3-6.7) K/mm3 Absolute Nucleated RBC 0.000 (0.0-0.012) K/mm3 Band Neutrophils % Not Reportable Nucleated RBC % 0.0 (0.0-0.2) % Atypical Lymphocytes Present Platelet Estimate Adequate (Adequate) Schistocytes None seen Sodium 140 (137-145) mmol/L Potassium 3.4 (3.4-5.0) mmol/L Chloride 110 H (98-107) mmol/L Carbon Dioxide 17 L (22-30) mmol/L Anion Gap 13 H (4-12) mmol/L BUN 8 (7-17) mg/dL Creatinine 0.67 L (0.7-1.0) mg/dL Estim Creat Clear Calc 100 ml/min Estimated GFR > 60 (59 - ) Glucose 129 H (65-110) mg/dL Lactic Acid 2.4 H (0.7-2.0) mmol/L Calcium 9.1 (8.4-10.2) mg/dL Total Bilirubin 0.2 (0.2-1.3) mg/dL AST 21 (14-36) U/L ALT 17 (6-35) U/L Alkaline Phosphatase 90 (38-126) U/L Total Protein 7.0 (6.3-8.2) g/dL Albumin 4.4 (3.5-5.1) g/dL Lipase 55 (23-300) U/L Urine Color Yellow (Yellow) Urine Appearance Cloudy H (Clear) Urine pH 6.5 (5.0-9.0) Ur Specific [place] 1.044 H (1.001-1.035) Urine Protein 1+ H (Negative) mg/dL Urine Glucose (UA) Negative (Negative) mg/dL Urine Ketones Trace H (Negative) mg/dL Ur Blood (Man) Negative (Negative) Urine Nitrate Negative (Negative) Urine Bilirubin Negative (Negative) Urine Urobilinogen 1.0 (<2.0) mg/dL Add Ur Microanalysis Reviewed Leukocyte Esterase Rfl Negative (Negative) IFEANYI/UL Urine RBC 0-2 (0-2) /hpf Urine WBC 6-10 H (0-3) /hpf Ur Squamous Epith Cells Moderate (Few) /hpf Urine Bacteria 4+ H /hpf Urine Casts 0-2 Discharge Plan Discharge Clinical Impression: Gastroenteritis, UTI (urinary tract infection) Patient Disposition: Home, Self-Care Condition: Stable Instructions: Antibiotic Form, Urinary Tract Infection in Women (ED), Gastroenteritis (ED) Additional Instructions: Return to the emergency department if you develop severe abdominal pain, severe nausea and vomiting to the point where you are unable to keep down fluids, if you develop chest pain or difficulty breathing, blood in your stool, dizziness or fainting, or if you develop any other new or concerning symptoms as these could be signs of more serious medical illness. Try to stay well hydrated. Patient Language: Kuwaiti Prescriptions: New ondansetron 4 mg tablet,disintegrating 4 mg PO Q6H PRN (Reason: nausea and vomiting) Qty: 10 0RF cephalexin 500 mg capsule 500 mg PO Q12H Qty: 10 0RF No Action fluoxetine 20 mg capsule 20 mg PO DAILY Follow-up/Referrals: Shade Beasley MD [Physician] - 1 Week PHYSICIAN,ACID PUMP OPERATOR [Primary Care Provider] -
[2025-02-27 11:44] LABS: Reflex Lactic Acid Yes or No Add Lactic
== END 2025-02-27 12:19 | disposition home or self-care (01) ==
PROVIDERS: Emergency Provider Emergency Medicine
DX: K52.9 Noninfective gastroenteritis and colitis, unspecified (principal); N39.0 Urinary tract infection, site not specified; J45.909 Unspecified asthma, uncomplicated
CPT/HCPCS: 36415; 80053; 81001; 83605; 83690; 85025; 96361; 96374; 96375; 99284; J2270; J2405; J7030

== ENCOUNTER 2025-09-08 10:45 | Emergency (ER) | payer OTHER, MEDICAID, SELFPAY ==
--- NOTE | ~2025-09-08 | XR_ITS ---
EXAMINATION: XR tibia fibula RT 2V, 09/08/2025 12:58 CDT HISTORY: fall COMPARISON: No comparisons available. Findings: No acute fracture or malalignment. No significant degenerative changes. Soft tissues unremarkable. Impression: No acute fracture or malalignment. Reviewed, dictated and finalized at location P. Impression: No acute fracture or malalignment.
--- NOTE | ~2025-09-08 | XR_ITS ---
EXAMINATION: XR knee LT min 4V, 09/08/2025 12:58 CDT HISTORY: left knee injury COMPARISON: No comparisons available. Findings: No acute fracture or malalignment. No significant degenerative changes. Soft tissues unremarkable. Impression: No acute fracture or malalignment. Reviewed, dictated and finalized at location P. Impression: No acute fracture or malalignment.
[2025-09-08 12:02] VITALS: BP 143/97; PULSE 85; RESP 18; TEMP 36.7; O2SAT 100
--- NOTE | 2025-09-08 12:46 | ED.FALL ---
HPI - Fall General Chief Complaint: Fall Stated Complaint: fall, L knee pain, abrasions Time Seen by Provider: 09/08/25 12:01 History of Present Illness HPI Narrative: Pt was walking in car near her water meter and fell in hole up to her knee oin her right side and twisted her left knee. Pt has pain in lef joint line and in right moffett. Pt had some pain in her neck and a mild JI lasst night but improved now. Related Data Home Medications ?Medication ?Instructions ?Recorded ?Confirmed ?Last Taken ?Type fluoxetine 20 mg capsule 20 mg PO DAILY 08/28/23 06/04/24 1 Day Ago History ~11/11/23 20 mg Allergies Allergy/AdvReac Type Severity Reaction Status Date / Time No Known Allergies Allergy Verified 09/08/25 10:46 [facility] Past Medical History Medical History Asthma Depression Elective Encounter for counseling regarding contraception induced hypertension Twin Surgical History Surgical History No significant past surgical history Family History Family History Grandparent Diabetes mellitus Acute myocardial infarction Father Hypertension Mother Family history of malignant neoplasm of breast in first degree relative, Onset Age: 47 Social History Social History Smoking status: Never smoker Tobacco type: cigarettes and e-cigarettes/vaping Second hand tobacco smoke exposure: No Alcohol intake: former Alcohol use details: DC'd when found out she was Substance use: never Substance use type: marijuana Do You Feel Safe in your Home?: Yes Lack of Transportation: No Lack of Food: Never True Current Housing: I Have Housing Concerned About Future Housing: No Difficulty Paying Gas/Electric Bills: No Difficulty Paying for Meds: No Currently Unemployed: No Education: High School Diploma/GED Difficulty w/ Childcare or Family Care: No Living arrangements: with family Occupation/Education: occupation Gender identity (if verbalized by the patient): Female Sexual Orientation (if Verbalized by the Patient): Straight or Heterosexual Spiritual care concerns: No Course Vital Signs Vital signs: Vital Signs Temperature 98.1 F 09/08/25 12:02 Pulse Rate 85 09/08/25 12:02 Respiratory Rate 18 09/08/25 12:02 Blood Pressure 143/97 H 09/08/25 12:02 Pulse Oximetry 100 09/08/25 12:02 Temperature 98.1 F 09/08/25 12:02 Pulse Rate 85 09/08/25 12:02 Respiratory Rate 18 09/08/25 12:02 Blood Pressure 143/97 H 09/08/25 12:02 Pulse Oximetry 100 09/08/25 12:02 MDM - Fall MDM Narrative Medical decision making narrative: fx vs contusion or internal derangement of knee. will get x rays of left klnee and righ tib fib to rule out fx. x rays neg. home on napsrosyn with crutches. off work tomorrow. Imaging Data Attestation: I personally reviewed and interpreted this imaging study as follows: My impression: no fx of tibia or knee Radiologist's impression: [place] [address] [place] [address] XRay Report Signed Patient: Jamie Garcia : 1995 MR#: [id number] Age: 30 Acct:[id number] Loc: [facility] ADM Date: 09/08/[address]: Ordering Physician: Magda Melo PA-C Date of Service: 09/08/25 Procedure(s): XR knee LT min 4V Accession Number(s): [id number] cc: Bryon Vazquez III, DO; Magda Melo PA-C; LEAD PRESSER PHYSICIAN~ EXAMINATION: XR knee LT min 4V, 09/08/2025 12:58 CDT HISTORY: left knee injury COMPARISON: No comparisons available. Findings: No acute fracture or malalignment. No significant degenerative changes. Soft tissues unremarkable. Impression: No acute fracture or malalignment. Reviewed, dictated and finalized at location . Please be advised this is a medical document. It is intended for bdtl-vz-zivi communication. It is written in medical language and may contain unfamiliar abbreviations or verbiage. Medical documents are intended to carry relevant information, facts as evident, and the clinical opinion of the practitioner at the time of the encounter. This report may have been done utilizing a voice recognition system. Attempts have been made to correct errors. However, there may be uncorrected grammatical, spelling, and recognition errors present. The file time of this note does not necessarily represent the time of service. Dictated By: Richard Oconnor MD 09/08/25 1306 Signed By: <Electronically signed by Richard Oconnor MD in OV> [place] [address] XRay Report Signed Patient: Jamie Garcia : 1995 MR#: [id number] Age: 30 Acct:[id number] Loc: [facility] ADM Date: 09/08/[address]: Ordering Physician: Bryon Vazquez III, DO Date of Service: 09/08/25 Procedure(s): XR tibia fibula RT 2V Accession Number(s): [id number] cc: Bryon Vazquez III, DO; LEAD PRESSER PHYSICIAN~ EXAMINATION: XR tibia fibula RT 2V, 09/08/2025 12:58 CDT HISTORY: fall COMPARISON: No comparisons available. Findings: No acute fracture or malalignment. No significant degenerative changes. Soft tissues unremarkable. Impression: No acute fracture or malalignment. Reviewed, dictated and finalized at location P. Please be advised this is a medical document. It is intended for ayrd-lf-yvoa communication. It is written in medical language and may contain unfamiliar abbreviations or verbiage. Medical documents are intended to carry relevant information, facts as evident, and the clinical opinion of the practitioner at the time of the encounter. This report may have been done utilizing a voice recognition system. Attempts have been made to correct errors. However, there may be uncorrected grammatical, spelling, and recognition errors present. The file time of this note does not necessarily represent the time of service. Dictated By: Richard Oconnor MD 09/08/25 3387 Signed By: <Electronically signed by Richard Oconnor MD in [place]> 09/08/25 1307 Discharge Plan Discharge Clinical Impression: Acute pain of left knee, Contusion of leg, right Patient Disposition: Home Condition: Stable Instructions: Antibiotic Form, Contusion in Adults (ED), Knee Pain (ED) Patient Language: Hong Konger Prescriptions: New naproxen [Naprosyn] 500 mg tablet 500 mg PO BID Qty: 30 0RF No Action fluoxetine 20 mg capsule 20 mg PO DAILY ondansetron 4 mg tablet,disintegrating 4 mg PO Q6H PRN (Reason: nausea and vomiting) Qty: 10 0RF cephalexin 500 mg capsule 500 mg PO Q12H Qty: 10 0RF Follow-up/Referrals: PHYSICIAN,LEAD PRESSER [Primary Care Provider, Internal Medicine] Stand Alone Forms: Work/School Release IP
[2025-09-08] MEDS: IBUPROFEN 400 MG TABLET 800 MG PO (12:54)
[2025-09-08 13:42] VITALS: PULSE 92; RESP 16; O2SAT 98
--- OUTSIDE RECORDS SUMMARY | 2025-09-08 14:22 | XMS_ITS | Clinical Summary ---
Author Organization [email or web address] [address] - [address] Address [address] [facility] 3rd [place] [address] Phone Care Team Providers Care Crop Pest Control Specialist Name Role Phone Unavailable Primary Care Provider Unavailabl e Social History Tobacco Use Types Packs/Day Years [...] (1 of 3 - 19+ 3-dose series) 07/26 HPV/Cotest (21-29) 2016 HPV VACCINES (1 - 3-dose SCDM series) 2022 INFLUENZA VACCINE (#1) 2025 CERVICAL CANCER SCREENING 2025 HPV/Cotest (30-65) 2025 PAP SMEAR 2025 Insurance [facility] MEDICAID
--- OUTSIDE RECORDS SUMMARY | 2025-09-08 14:22 | XMS_ITS | Clinical Summary ---
Author Organization [facility] Address [address] [facility] [place] [address] Care Team Providers Care Typewriter Assembly And Parts Inspector Name Role Phone Unavailable Primary Care Provider Unavailabl e Source Comments [facility] [employer],non-owned Affiliates and Associated Physician Practices is amultiple site organization consisting of ambulatory clinics and hospital sitesin [place], [place], [place] and [place]. This disclosure is being madepursuant to the Care Everywhere program and may not contain all information available regarding this patient. Last updated 18.[facility] [employer] Social History Tobacco Use Types Packs/Day Years Used Date Smoking Tobacco: Never Assessed Comments Unknown Sex and Gender Information Value Date Recorded Sex Assigned at Not on file Legal Sex Female 10:58 AM PLASTIC TILE SETTER Gender Identity Not on file Sexual Orientation Not on file Plan of Treatment Health Maintenance Due Date Last Done Comments HIV SCREENING 2010 HEPATITIS C SCREENING 08/08/2013 DTAP/TDAP/TD VACCINES (1 - Tdap) 2014 HEPATITIS B VACCINE (1 of 3 - 19+ 3-dose series) 2014 PAP SMEAR 2016 HPV VACCINE (1 - 3-dose SCDM series) 2022 DEPRESSION SCREENING 11/24/2024 COVID-19 VACCINE (1 - 2023-2 5 season) 2025 INFLUENZA VACCINE (#1) 2025 ZOSTER VACCINE (1 of 2) 2045 HIB [...] patient's age to complete this topic Insurance [facility] SELF PAY NO INSURANCE Member Subscriber Plan / Payer (Ef fective for All Dates) Name:Sharlene Garcia Member ID:Not on file Relation to Subscriber:Not on file Name:SHARLENE GARCIA Subscriber ID:Not on file Address: [address] [place] [address] Payer ID:Not on file Group ID:Not on file Type:Self Pay Address: [place], [place]
== END 2025-09-08 13:43 | disposition home or self-care (01) ==
PROVIDERS: Emergency Provider Emergency Medicine
DX: S89.92XA Unspecified injury of left lower leg, initial encounter (principal); S80.11XA Contusion of right lower leg, initial encounter; J45.909 Unspecified asthma, uncomplicated; F32.A Depression, unspecified; Z79.899 Other long term (current) drug therapy; W17.1XXA Fall into storm drain or manhole, initial encounter
CPT/HCPCS: 73564; 73590; 99284; A9270